=== PATIENT | female | born 1930 | race Caucasian/White ===

== ENCOUNTER 2017-07-20 08:38 | Inpatient (IN) | payer MEDICARE, OTHER ==
[~2017-07-20] VITALS: Ht 162.6 cm; Wt 63.2 kg
[2017-07-20] MEDS ORDERED: ALBU17IN INH (08:48)
[2017-07-20] MEDS ORDERED: CARV3.12 PO (08:48)
[2017-07-20] MEDS ORDERED: ASPI81TA85 PO (08:48)
[2017-07-20] MEDS ORDERED: POTA20TA4 PO (08:48)
[2017-07-20] MEDS ORDERED: IPRASOL4 NEB (08:48)
[2017-07-20] MEDS ORDERED: FURO40TA2 PO (08:48)
[2017-07-20] MEDS ORDERED: ONDA4TAB5 PO (08:48)
[2017-07-20] MEDS ORDERED: ADV250INH INH (08:48)
[2017-07-20] MEDS ORDERED: METOPROLOL TART 50 MG TAB PO ONE (09:45)
[2017-07-20] MEDS: METOPROLOL 5 MG/5 ML VIAL IV SCH ×4 (09:50→10:47)
[2017-07-20 10:05] LABS: BASO % 0.1 % (0.0-1.0); LYMPH # 0.8 10^3/uL (1.5-4.5); LYMPH % 6.9 % (24.0-44.0); MEAN CORPUSCULAR HEMOGLOBIN 29.9 pg (27.0-33.0); MEAN CORPUSCULAR HGB CONC 31.1 g/dl (32.0-36.5); MEAN CORPUSCULAR VOLUME 96.1 fl (80.0-96.0); MONO # 0.9 10^3/uL (0.0-0.8); MONO % 7.2 % (0.0-5.0); NEUTROPHILS # 10.1 10^3/uL (1.8-7.7); NEUTROPHILS % 84.8 % (36.0-66.0); PLATELET COUNT, AUTOMATED 169 10^3/uL (150-450); RED CELL DISTRIBUTION WIDTH 17.1 % (11.5-14.5)
[2017-07-20] MEDS ORDERED: METOPROLOL TART 50 MG TAB As Ordered ONE (10:05)
[2017-07-20 10:06] LABS: ADD MANUAL DIFFER NO; DIFF SLIDE NUMBER 168
[2017-07-20 10:13] LABS: INR 1.39
--- NOTE | 2017-07-20 10:22 | REP ---
Portable chest, single AP view, patient sitting: There are no comparisons. There is mild interstitial coarsening of uncertain significance in the absence of prior studies (chronic versus acute). Cardiac size is enlarged. There is a cardiac valve prosthesis. There are no pleural effusions. There are no focal infiltrates. There is a focal dense lesion in the right humeral neck, nonspecific, metastasis versus enchondroma versus bone infarct. Signed by Kris Gomez MD 07/20/2017 10:13 A
[2017-07-20 11:10] LABS: CALCIUM LEVEL 8.6 MG/DL (8.8-10.2); CREATININE FOR GFR 1.2 MG/DL (0.55-1.02); GLOMERULAR FILTRATION RATE 45.2 (>32); POTASSIUM SERUM 4.8 MEQ/L (3.5-5.1)
[2017-07-20] MEDS ORDERED: FUROSEMIDE 40 MG/4 ML VIAL (J1940) IV ONE (11:45)
[2017-07-20] MEDS ORDERED: DIGOXIN INJ 0.5 MG/2 ML AMP (J1160) IV ONE (11:45)
[2017-07-20] MEDS ORDERED: ONDANSETRON 4MG/2ML VIAL (J2405) IV PRN (13:45)
[2017-07-20] MEDS ORDERED: ACETAMINOPHEN TAB 650MG DOSE (2X325MG) PO PRN (13:45)
[2017-07-20] MEDS ORDERED: IPRATROPIUM 0.02% SOLN 0.5MG/2.5 ML NEB INH PRN (13:45)
--- NOTE | 2017-07-20 13:53 | REP ---
CT Head without contrast HISTORY: Confusion COMPARISON: None An area of decreased attenuation is present in the left occipital and posterior left temporal lobe. There is dilatation of the overlying cortical sulci. This represents an old infarction. A small area of decreased attenuation is present in the inferior right cerebellum. This represents an infarction of indeterminate age. Areas of decreased attenuation are present in the periventricular and subcortical white matter. This represents small-vessel ischemic disease. There is no intraparenchymal hemorrhage, mass or midline shift. The ventricular system and cortical sulci are dilated consistent with mild volume loss. There is no extra cerebral collection. There is no fracture. The visualized sinuses are clear. IMPRESSION: 1. 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 2. Small right cerebellar infarction of indeterminate age. 3. Small vessel ischemic disease. 4. Mild volume loss. Signed by Raffaele Meyers MD 07/20/2017 01:44 P
[2017-07-20 14:10] LABS: RETIC HEMOGLOBIN EQUIVALENT 34.4 pg (24-36); RETICULOCYTE % 4.8 % (0.5-1.5)
[2017-07-20 15:00] VITALS: BP 138/77
--- NOTE | 2017-07-20 15:05 | HPE ---
DATE OF ADMISSION: 07/20/2017 PRIMARY CARE PHYSICIAN: In [place]. MEDICAL CLERICAL ASSISTANT: Dr. Christy in [place]. CHIEF COMPLAINT: Shortness of breath. HISTORY OF PRESENT ILLNESS: The patient is an 87-year-old female who presented to a hospital in [place], [facility] was the name of the facility, on 06/14/2017. At that time, she presented with aphagia and right sided weakness. A CT was completed at that time and did not reveal any hemorrhage. An MRI check later did reveal a hemorrhagic conversion. Etiology at that time was not clear. She was not started on any anticoagulation other than aspirin. She did have residual deficits and was discharged to a rehab facility where she was supposed to stay for 6-8 weeks. However, after 3 weeks, her insurance notified her that she was no medically stable for discharge home and she went to live with her son. The patient's son is a recovered alcoholic who has been sober for 20 or greater years, but fell off the wagon and began drinking heavily shortly after his mother arrived fearing that he was unable to care for her. The patient's daughter, who lives in this area had arranged for an ambulance to pick her up from her drunk brother's house and drive straight directly to her home where she stayed overnight, however the patient became increasingly confused and short of breath, which prompted her to bring her to the emergency room here. The patient's CVA, upon reviewing her cardiologists notes, following her discharge report, there was concern that it was secondary to paroxysmal atrial fibrillation. The franchise development manager had wanted to start the patient on Eliquis, however given that she had hemorrhagic conversion of her CVA, this was not done. The patient was continued on aspirin. The patient does have a history of bioprosthetic aortic valve replacement and subsequent stenosis of this valve, and prior to her CVA had been undergoing evaluation for potential transcatheter aortic valve replacement (TAVR), which she had been resistant to. She had reportedly been told that she needed a pacemaker to be placed by her previous franchise development manager and she declined this as well. In the emergency room at this time, the patient is disoriented to place, time or situation. She is only aware of who she is. She is not aware of who else is in the room. She has no complaints of shortness of breath, chest pain or pressure at this time. PAST MEDICAL HISTORY: Status post aortic valve replacement with acquired aortic stenosis. Chronic kidney disease stage III. Chronic obstructive pulmonary disease (COPD). Hypertension. Paroxysmal atrial fibrillation, discovered July 06. Varicose veins. Right bundle branch block. Essential tremors. Dysphagia. Osteoarthritis (OA). PAST SURGICAL HISTORY: Bioprosthetic aortic valve replacement in 2005 with leak. Hysterectomy in 1981. Cystoscopy 20 years ago with perforated colon. Bilateral cataract surgery. SOCIAL HISTORY: Her daughter Caridad is the power of energy attorney. She is an occasional drinker, former smoker. HOME MEDICATIONS: - Ventolin - DuoNebs - aspirin 81 mg - Coreg 3.125 mg by mouth twice a day - Lasix 40 mg daily - Zofran 4 mg as needed for nausea - potassium chloride 20 mEq daily - Tylenol 500 mg every 6 hours as needed for pain - Advair - atorvastatin 40 mg - senna 8.6 - omeprazole 20 mg FAMILY HISTORY: Noncontributory. REVIEW OF SYSTEMS: Negative other than the history of present illness. OBJECTIVE: VITAL SIGNS: Temperature 98.1, pulse 130 and irregular, respiratory rate 20, blood pressure 109/68, oxygen saturation 94% on 2 liters nasal cannula. GENERAL: She is a frail elderly, female laying with head up in bed. She does not appear to be in any acute distress. She is resting quite comfortably. HEENT: She has prominent venous congestion. Does appear to be some mild elevation of her central venous pressure, although she does have chronic baseline congestion I suspect. She has moist mucous membranes. Pupils equally, round and reactive to light. Tongue is midline. Face is symmetric. She does cooperate with cranial nerve testing but it appears to be grossly intact based on my conversation. She does track across the room. CARDIOVASCULAR EXAM: S1 and S2 irregularly irregular with pansystolic murmur. RESPIRATORY EXAM: Clear. She does not cooperate with deep inspiration. ABDOMINAL EXAM: Obese. She has ecchymosis in the right lower quadrant. EXTREMITIES: She has 1-2+ edema bilaterally. NEUROLOGIC: She does not cooperative with neurologic testing. LABORATORY STUDIES: WBC 12.0, hemoglobin 11.4, hematocrit 36.6, platelet count 169. Chemistry panel: Sodium 138, potassium 4.8, chloride 102, bicarb 30, BUN 43, creatinine 1.2, BNP is 36,412, Troponin is 0.04, TSH within normal limits, INR is 1.39. Microbiology: Urine culture from the Ybarra catheter placed in the emergency room is pending. She had a chest x-ray that does not reveal pleural effusions or focal infiltrates. There is a focal dense lesion in the right humeral neck, nonspecific, metastasis versus an enchondroma versus bone artifact. ASSESSMENT/PLAN: This is an 87-year-old female with atrial fibrillation with rapid ventricular response (RVR) in the setting of recent CVA. PROBLEMS: 1. Atrial fibrillation with rapid ventricular response (RVR). She did receive Lopressor 5 mg IV times three in the emergency room as well as 50 mg by mouth. In addition, she also did receive 0.25 mg of digoxin IV times one. Her rate at this time appears to still be uncontrolled and she dips down into the low 100s at times. I have contacted Dr. Mcginnis of cardiology as a consult to see if he can help in controlling the rate as she does appear to be somewhat hypotensive. She will be admitted to the progressive care unit and depending on her need she may require Cardizem drip and may require transfer to the medical intensive care unit. I will continue her on metoprolol tartrate 25 mg every 6 hours with holding parameters and close monitoring. 2. Recent CVA. She is on atorvastatin and aspirin, which I will continue. Physical therapy, occupational therapy and speech therapy evaluations have been placed. She will be a pureed diet. Given that she is confused it is unclear to me or the daughter as to even how close or different this is from her baseline since her CVA. I will recheck a CT of her head at this time stat to ensure no worsening bleeding. Will also check an MRI of the brain to rule out any new CVA. I have spoken with Dr. Harris of neurology who will see the patient in consultation. Given that she is likely a fall risk, she is not a good candidate for anticoagulation; however, given her recent CVA related to paroxysmal atrial fibrillation, she is certainly at high risk for having a stroke once again. A lengthy conversation was had with the patient's daughter at the bedside who is the power of energy attorney. I did discuss goals of care, code status, DNR, DNI. At this time, she wishes to think about it. However, given that the patient's history of declining medical therapies and surgical interventions in the past, it does not seem as though she would want to have aggressive measures taken. 3. Congestive heart failure (CHF), reportedly diastolic in nature as per her franchise development manager. She appears to be mildly decompensated likely related to her atrial fibrillation with rapid ventricular response (RVR). She received 40 of Lasix in the emergency room and has a Ybarra catheter in place. Given that her pressure is soft, we attempting to rate control her. I will hold off on further diuresis at this time. Keep the head of her bed up. She is on 2 liters of oxygen. We will wean as tolerated and titrate for sats greater than 88. She has a right bundle branch block which is chronic. She is on aspirin and statin as well as a beta-lin. Will trend her Troponin and monitor int he progressive care unit. 4. Leukocytosis. Likely related to stress. However, given that she is confused, we will check a UA, blood cultures, and urine culture as well to rule out any infectious etiology, however this seems less likely at this time. 5. Chronic kidney disease. No clear baseline, however she is reportedly stage III and I suspect that she is not far from her baseline. 6. Hypertension. She is actually hypotensive at this time. 7. Chronic obstructive pulmonary disease (COPD). Will continue her with Xopenex as needed as well as ipratropium standing and as needed. She does not appear to be acutely short of breath at all. 8. Aortic stenosis. The patient has a bioprosthetic aortic valve placed in 2005 and reportedly does have a leak and acquired stenosis. She was under evaluation for TAVR, which she does not appear to be a good candidate for at this time. Will check an echocardiogram on this patient. She will have neuro checks. 9. Deep vein thrombosis (DVT) prophylaxis. The patient will be on Lovenox. DISPOSITION: Patient is admitted to the progressive care unit. Her clinical status is guarded and snf prognosis appears to be poor. I did initiate a goals of care discussion with the patient's daughter, Caridad, who is the power energy attorney and discuss DNR/DNI. She will think about this, but I suspect the patient, given her history, this is most appropriate at least DNR/DNI status and at her very best would require test evaluator placement.
[2017-07-20] MEDS: ASPIRIN 81 MG CHEW TABLET PO SCH (15:14)
[2017-07-20] MEDS: ATORVASTATIN 20 MG TAB PO SCH (15:14)
[2017-07-20] MEDS: IPRATROPIUM 0.02% SOLN 0.5MG/2.5 ML NEB INH SCH ×2 (15:17→19:55)
[2017-07-20 15:29] LABS: PERCENT SATURATION 11.4 % (13.2-45.0)
[2017-07-20 16:03] LABS: MICROSCOPIC INDICATED? YES (NO)
[2017-07-20] MEDS: METOPROLOL TART 25 MG TABLET PO SCH ×2 (17:03→23:43)
[2017-07-20] MEDS ORDERED: SLF 3 ML SYR IV PRN (19:00)
--- NOTE | 2017-07-20 20:14 | CR ---
DATE OF CONSULTATION: 07/20/2017 REFERRING PHYSICIAN: Dr. Dunn INDICATION: Atrial fibrillation, congestive heart failure. Aortic stenosis. HISTORY OF PRESENT ILLNESS: Ms. Atkinson is previously unknown to me. She is a very pleasant 87-year-old female who has complicated medical history. She suffered an ischemic stroke in late May 2017 (06/14/2017) that manifested as aphasia and right-sided weakness. She was admitted to hospital in [place]. Apparently there was a hemorrhagic conversion, but she was eventually discharged to rehab facility and after 3 weeks actually discharged home. She was taken care of by her son, who unfortunately is an alcoholic, and after few days his condition decompensated and he started a drinking binge and called his sister. She arrange for medical transport for the patient to be brought from [place] all the way to [place]. On presentation here, she was very short of breath, confused at times, she had peripheral edema, so she was brought for evaluation in emergency room and eventually admitted. On presentation to the ER she was found to be in atrial fibrillation with rapid ventricular response. There was evidence for congestive heart failure. She was only minimally verbal, but the condition somewhat improved and as we speak she actually can answer some simple questions even though not always appropriately. It is a desire of her daughter and granddaughter (both at the bedside) to provide all maximal possible medical therapy. At my evaluation, the patient denies any chest pain or shortness of breath. She has no subjective palpitations. Unfortunately that is about how much history I was able to obtain. PAST MEDICAL HISTORY: 1. History of aortic valve replacement with bioprosthesis in 2005. Based on records of her soda flaker from [place], Dr. Jeff Christy, she had an echocardiogram in September 2016 which revealed preserved left ventricular systolic function, but severe stenosis of aortic bioprosthesis (mean gradient was 48 mmHg) and there was moderate aortic insufficiency and moderate pulmonary hypertension. She apparently was being evaluated for possibility of TAVR but it is unclear whether she refused the procedure, but in any case, it was never done. 2. History of atrial fibrillation. According to records of her soda flaker it was diagnosed just in June 2017. According to the family there is longstanding history of paroxysmal atrial fibrillation, but we do not have any documented records. 3. There is no significant coronary artery disease. She had cardiac catheterization in April 2015 that revealed mild nonobstructive coronary artery disease. 4. History of congestive heart failure. 5. Arterial hypertension. 6. COPD. SURGICAL HISTORY: Positive for AVR in 2005, hysterectomy and remote colonoscopy complicated by perforation. OUTPATIENT MEDICATIONS: As of 06/1917 Coreg 3.125 twice a day, aspirin 81 a day, Lasix 40 once a day, potassium chloride. 10 mEq once a day, omeprazole 20 mg a day, albuterol as needed and Lipitor 40 mg a day and Aleve as needed. FAMILY HISTORY: Father arterial hypertension and mother as well. It is probably no longer relevant information. 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 She does not smoke and she used to smoke a long time ago. She lives with her son but as of lately was brought to [facility]. Her daughter, Caridad is her power of trust and estates attorney REVIEW OF SYSTEMS: On the review of systems she cannot provide reasonable history, but based on family and records from her soda flaker, there is no history of bleeding problems. There is no prior history of stroke. There is no history of coronary artery disease. There is no history of syncope, even though at one point apparently there was a consideration for pacemaker placement. She denies any abdominal pain and the rest of review of systems as per HPI or otherwise negative. PHYSICAL EXAMINATION: Ms. Atkinson is an elderly female. She does not appear to be in any physical distress. She is alert and oriented x2. She provides simple answers to basic questions but cannot elaborate and certainly some of her answers are not appropriate. The last set of vital signs was blood pressure 125/62, heart rate 115. Saturation was 98% on 2 liters of oxygen by nasal cannula. She is afebrile. Her JVP is about 5 cm above clavicle in 40% degree. Lungs are reasonably clear to auscultation with only occasional end-inspiratory crackles. I do not appreciate any wheezing. Heart exam reveals irregularly irregular rhythm. There is harsh systolic ejection murmur over the aortic valve radiating to both carotid arteries about 4/6 intensity. There is also diastolic murmur which is best heard at left sternal border about 2/6 intensity. I do not appreciate any mitral insufficiency murmur. Abdomen is soft, nontender. No hepatosplenomegaly is appreciated. There is about 2+ edema to the level of knees. Peripheral pulses are palpable. Neurologically she has right-sided weakness and she has some degree of expressive aphasia. She seems to comprehend well. There is some element of confusion as well. LABORATORY DATA: Basic metabolic panel potassium 4.8, BUN 43, creatinine 1.0, glucose 126, iron 34, TIBC 297. Saturation 11%. CK 39, troponin 0.04 x to her and terminal probe BNP 36,000. TSH is 3.4. CBC reveals WBC count 12, hemoglobin 11.4, hematocrit 36.6 and platelet count 169,000, INR is 1.4. Urinalysis is 2+ protein, 2+ blood and 2+ leukocyte esterase. IMAGING: Head CT revealed evidence for old left occipital lobes infarction. There is also some evidence for volume loss and small-vessel ischemic disease. Chest x-ray is consistent with borderline cardiomegaly, evidence for bioprosthetic aortic valve and some degree of vascular redistribution, not wilfred edema. ECG reveals evidence of atrial fibrillation with rapid ventricular response. ASSESSMENT/PLAN: Ms. Atkinson is an 87-year-old female who has probably recent onset atrial fibrillation and suffered ischemic stroke in May 2017 with hemorrhagic transformation. She now presents with atrial fibrillation with RVR and exacerbated congestive heart failure setting of severe bioprosthetic aortic valve stenosis with concomitant aortic insufficiency. As far as the cardiac issues are concerned, the atrial fibrillation I agree with current management with providing beta-lin with holding for low blood pressure and heart rate and also digoxin. I am hoping that we will not ultimately need digoxin any longer. As far as the munoz question of anticoagulation is concerned, I am reluctant to provide full anticoagulation due to recent hemorrhagically converted ischemic stroke. I spoke with Dr. Harris and at this point he agrees with my plan, but he believes that provided there will be some clinical stability, she will eventually be able to be started on anticoagulation. My choice would be reduced dose of Eliquis 2.5 mg twice a day to start with. As far as congestive heart failure is concerned, she certainly is acutely exacerbated and volume overloaded. We will provide gentle diuresis. Unfortunately in setting of AFib with RVR and severe aortic stenosis it may not be feasible to get her into got over into compensated state. We will have to take it a day at a time. Ultimately, her candidacy for potential TAVR will principally depend on degree of recovery from her neurologic insult. At this point I am rather skeptical about feasibility of this approach. I expressed my opinion to the family. I spoke with Dr. Harris. I will follow the patient with you. SARAH
[2017-07-20] MEDS: SLF 3 ML SYR IV SCH (22:23)
[2017-07-20] MEDS: ENOXAPARIN 40 MG/0.4 ML SYRINGE (J1650) SC SCH (22:23)
[2017-07-20 23:20] VITALS: BP 138/82
[2017-07-21 00:33] VITALS: BP 133/65
[2017-07-21] MEDS: FUROSEMIDE 40 MG/4 ML VIAL (J1940) IV SCH ×2 (00:55→11:40)
[2017-07-21] MEDS: diltiaZEM 125 MG in NS 100 ML IV SCH ×2 (00:55→16:50)
[2017-07-21 03:40] VITALS: BP 118/59
[2017-07-21] MEDS: SLF 3 ML SYR IV SCH ×3 (06:00→22:00)
[2017-07-21] MEDS: METOPROLOL TART 25 MG TABLET PO SCH ×3 (06:00→17:16)
[2017-07-21 06:20] LABS: MEAN CORPUSCULAR HGB CONC 31.5 g/dl (32.0-36.5); MEAN CORPUSCULAR VOLUME 95.5 fl (80.0-96.0); RED CELL DISTRIBUTION WIDTH 16.6 % (11.5-14.5); WHITE BLOOD COUNT 10.9 10^3/uL (4.0-10.0)
[2017-07-21 06:46] LABS: CALCIUM LEVEL 8.1 MG/DL (8.8-10.2); CREATININE FOR GFR 0.98 MG/DL (0.55-1.02); GLOMERULAR FILTRATION RATE 57.2 (>32); POTASSIUM SERUM 4.1 MEQ/L (3.5-5.1)
[2017-07-21] MEDS: IPRATROPIUM 0.02% SOLN 0.5MG/2.5 ML NEB INH SCH ×4 (07:34→20:26)
--- NOTE | 2017-07-21 07:47 | CR ---
DATE OF CONSULTATION: 07/20/2017 REFERRING PHYSICIAN: Dr. Sergio Dunn REASON FOR CONSULTATION: Patient with history of stroke and atrial fibrillation. HISTORY OF PRESENT ILLNESS: Poonam Atkinson is an 87-year-old woman who was admitted at a hospital in [place] on 06/14/2017 when she had right-sided weakness and trouble speaking. She was found to have left occipital paramedian acute ischemic stroke on CT scan of head. Later, MRI scan of brain showed hemorrhagic conversion. I do not have reports to know the size of hemorrhage within the stroke. She was also found to have atrial fibrillation. They planned to start Eliquis at that time, but could not do so due to hemorrhagic conversion of her ischemic stroke. The patient went to rehabilitation for 3 weeks. Later, she was discharged home and was living with her son who had issues with alcoholism. Due to her son's alcoholism, she came to live with her daughter yesterday. Because of her shortness of breath, she was brought to [facility] and was found to have atrial fibrillation with rapid ventricular response. The patient also has history of extensive valvular heart disease. She had been taking aspirin 81 mg daily prior to her stroke. According to the patient's daughter and granddaughter, the patient has been very active and independent all her life until she had her stroke. The patient currently appears confused. She has had issues with balance lately. They felt that her balance worsened since she came home. The patient denies any headaches or neck pain. She has history of off-and-on back pain in the past. PAST MEDICAL HISTORY: 1. History of bioprosthetic aortic valve replacement with aortic stenosis. 2. Chronic kidney disease stage III. 3. Chronic obstructive pulmonary disease (COPD). 4. Hypertension. 5. Atrial fibrillation which was discovered within the last couple of months. 6. Varicose veins. 7. Essential tremor. 8. Dysphagia. 9. Osteoarthritis. 10. Right bundle branch block. 11. Hysterectomy. 12. Cystoscopy. 13. Bilateral cataract surgery. SOCIAL HISTORY: She is currently living with her daughter. She moved from [place] yesterday. HOME MEDICATIONS: - aspirin 81 mg by mouth daily - Coreg 3.125 mg by mouth twice a day - Lasix 40 mg by mouth daily - Lipitor 40 mg by mouth daily - Prilosec 20 mg by mouth daily FAMILY HISTORY: Noncontributory. REVIEW OF SYSTEMS: All systems were reviewed and were found to be noncontributory except as mentioned in history present illness. PHYSICAL EXAMINATION: Temperature 98.1, pulse 130 and irregular, respiratory rate 20, blood pressure 109/68. Heart: Irregularly irregular. Lungs: Clear to auscultation. Abdomen: Soft, nontender, nondistended. Neurological Examination: The patient is awake, mildly drowsy and oriented to self, city and state. She is unable to tell me the name of the hospital, month, year, or name of president. Her recall is 0/3 at 5 minutes. She is unable to do serial sevens. Her speech is clear. Extraocular muscles are intact. No facial weakness. Tongue and uvula are midline. 5/5 strength in all four extremities. Deep tendon reflexes are 1+ throughout. Normal sensation to light touch, pinprick, vibration, etc. She has decreased right-sided visual delgado. Gait could not be tested. There is no dysmetria. DIAGNOSTIC STUDIES: CT scan of her head showed left occipital paramedian and right cerebellar ischemic strokes. ASSESSMENT: 1. Left occipital and right cerebellar ischemic strokes. 2. History of left occipital stroke in May 2017 with hemorrhagic conversion and hemorrhage that has since resolved. 3. Atrial fibrillation. 4. Unsteady gait. 5. Delirium. 6. Possible urinary tract infection, although some of the studies are still pending. PLAN: 1. She does need to be on anticoagulation, but her fall risk increases risk of traumatic abdominal and intracranial bleeding. We should continue aspirin 81 mg by mouth daily for now until her mentation and hopefully her walking ability improves and then consider using Xarelto or Eliquis. 2. If she is found to have urinary tract infection, treating that with antibiotics may improve her delirium. We can also use Risperdal 0.25 mg by mouth twice a day to improve her encephalopathy and delirium. 3. Cardiology consultation is also recommended due to extensive history of valvular heart disease and now atrial fibrillation. This dictation thank you very much
[2017-07-21 08:00] VITALS: BP 112/54
--- NOTE | 2017-07-21 08:02 | IPN ---
DATE: 07/21/2017 Mrs. Atkinson did not have a particularly good night. She apparently was restless, she could not tolerate the MRI and she did not take her medications orally and consequently she was started on IV Cardizem. This morning, she is somewhat somnolent, but easily arousable and appropriately answers questions. She would squeeze my hands and smile on command. Denies any chest pain or shortness of breath. Blood pressure 118/59. Heart rate has been from 70s to low 100s. She is afebrile. Saturation 97% on 2 liters of oxygen. Fluid balance yesterday documented -300. Weight is 62.4. Her jugular venous pulse (JVP) is still elevated, but less so than yesterday evening. Lungs sound pretty clear to auscultation. I do not appreciate any wheezing or crackles. Heart exam reveals an irregularly irregular rhythm. There is a harsh systolic ejection murmur over the aortic valve radiating to her carotid arteries and also there is a diastolic murmur consistent with aortic insufficiency. Both are very loud. Abdomen is soft, no tenderness. The peripheral edema has decreased, I would qualify it as about 1+ today. Neurologic condition does not seem to be appreciably changed since yesterday. Laboratorywise, hemoglobin 10.6, hematocrit 33.7 and platelet count 149,000. Her basic metabolic panel remains normal. BNP was for some reason redrawn and is essentially unchanged since yesterday and extremely high. ASSESSMENT/PLAN: Mrs. 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 She was being worked up for transcatheter aortic valve replacement (TAVR), but unfortunately suffered a stroke in late May. 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 She seems to be left with significant neurologic deficit. She was later on found to be in atrial fibrillation and came to our facility with rapid ventricular response and concomitant congestive heart failure. I would prefer to use beta blockers for rate control, but unfortunately because she has not been swallowing she was started on IV Cardizem. It seems to have been successful and the rate is reasonably well-controlled at this point. As far as the congestive heart failure condition is concerned, she really has not received very much diuretics as yet and I do expect that it will improve with better rate control, even though due to underlying severe aortic stenosis it might be very challenging to accomplish good control as such. From my perspective, I believe that she can be started on anticoagulation. I would prefer to use Eliquis just 2.5 mg twice a day initially because of her age and small size. I will leave the recommendations to neurology, but when reasonably safe from their perspective, I would proceed. As far as the aortic valve is concerned, I do not believe that she is a candidate for TAVR until we have a better idea what is her neurologic condition going to be as a consequence of the events that she suffered. As far as congestive heart failure is concerned, I would continue current management. An echocardiogram is pending, but we have one from about 10 months ago from [place] that revealed preserved LV systolic function and severe aortic stenosis. It is consistent with the exam and consequently I am afraid that to accomplish really good control will be challenging. I think that her overall prognosis remains guarded at best and I am especially concerned about her neurologic status. Even though she is fully alert and oriented, her condition is certainly not favorable. SARAH
[2017-07-21] MEDS: ATORVASTATIN 20 MG TAB PO SCH (09:00)
[2017-07-21] MEDS: PANTOPRAZOLE 40MG TAB (PROTONIX) PO SCH (09:00)
[2017-07-21] MEDS: ASPIRIN 81 MG CHEW TABLET PO SCH (09:00)
[2017-07-21] MEDS ORDERED: DIGOXIN 0.125 MG TAB PO SCH (09:00)
[2017-07-21 12:00] VITALS: BP 115/62
[2017-07-21 16:00] VITALS: BP 120/71
--- NOTE | 2017-07-21 16:07 | IPNPDOC ---
Subjective Date Seen The patient was seen on 07/21/17. Subjective Chief Complaint/HPI Patient seen and examined at the bedside. Does not offer much history, as she does appear more drowsy this morning. She nods that she is not in any pain, and does not offer any acute complaints. House staff notes that the patient was restless throughout the night. Objective Physical Examination General Exam: Positive: Cooperative, No Acute Distress ENT Exam: Positive: Atraumatic, Mucous membr. moist/pink Chest Exam: Positive: Diminished Heart Exam: Positive: Irregular Rhythm Telemetry: Positive: Atrial fibrillation Abdomen Exam: Positive: Soft, Negative: Tenderness Extremity Exam: Positive: Swelling (1+ edema in L/E bilaterally), Negative: Tenderness Assessment /Plan Plan/VTE VTE Prophylaxis Ordered?: Yes Plan/Urinary Catheter Reason for insertion/continuin: Critical Pt monitoring Plan Atrial Fibrillation with RVR Patient's HR better controlled on Cardizem gtt this AM HR remains in the 70-80s range while on 5mg/hr Patient not on AC due to recent history of Ischemic CVA with Hemorrhagic conversion--will f/u with Neurology regarding recommendations for AC Cardiology on board Decompensated CHF likely 2/2 Above Currently on Lasix 40mg IV BID as per Cardiology 2D ECHO pending here Volume status appears to have improved compared to last night We will cont to monitor her volume status Hx of Bioprosthetic Aortic Valve Replacement with Subsequent Severe Aortic Stenosis of Prosthesis Patient was being considering for TAVR in the past, however she did suffer a CVA recently, and there was also a question of whether she declined this intervention Cardiology on board Hx of Ischemic CVA with Hemorrhagic Conversion CT of the Head noted here Patient was unable to obtain MRI 2/2 clinical condition Cont ASA, Statin Neurology on board CKD Stage IIIB Serum Cr appears to be at baseline COPD, stable Cont Current Regimen DVT Prophylaxis Lovenox SC 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 She wishes to talk with her family before coming to a decision. Dispo-pending clinical improvement VS, I&O, 24H, Fishbone Vital Signs/I&O Vital Signs Date Time Temp Pulse Resp B/P (MAP) Pulse Ox O2 Delivery O2 Flow Rate FiO2 07/21/17 12:00 Nasal Cannula 2.0 07/21/17 12:00 98.0 69 18 115/62 (79) 98 I&O- Last 24 Hours up to 6 AM 07/22/17 06:00 Intake Total 630 ml Output Total 550 ml Balance 80 ml Laboratory Data 24H LABS Laboratory Tests 2 07/20/17 19:20: Troponin I 0.06# 07/21/17 01:40: Troponin I 0.07 07/21/17 06:02: Troponin I 0.07, Anion Gap 7L, Glomerular Filtration Rate 57.2, Estimated Mean Plasma Glucose 114H, Hemoglobin A1c 5.6, Calcium Level 8.1L, NL-Psz-N-Type Natriuretic Peptide 36407K, Triglycerides Level 89, LDL Cholesterol 78.2, Total Cholesterol 125, Non-HDL Cholesterol (LDL + VLDL) 96, Total HDL Cholesterol 29L , Cholesterol/HDL Ratio 4.310 07/21/17 13:19: Troponin I 0.06 CBC/BMP Laboratory Tests 07/21/17 06:02 Red Blood Count 3.53 L, Mean Corpuscular Volume 95.5, Mean Corpuscular Hemoglobin 30.0, Mean Corpuscular Hemoglobin Concent 31.5 L, Red Cell Distribution Width 16.6 H Microbiology Microbiology 07/20/17 Blood Culture - Preliminary, Resulted No growth after 24 hours . All specim... 07/20/17 Blood Culture - Preliminary, Resulted No growth after 24 hours . All specim... 07/20/17 Urine Culture - Preliminary, Resulted Staphylococcus Aureus REGULO LEIVA MD Jul 21, 2017 16:07
[2017-07-21 20:00] VITALS: BP 115/56
--- NOTE | 2017-07-21 20:57 | ECGEPIP ---
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
--- NOTE | 2017-07-21 23:09 | ECHO ---
DATE OF PROCEDURE: 07/21/2017 REFERRING PHYSICIAN: Sergio Dunn MD PATIENT LOCATION: Room 3217 REASON FOR ECHOCARDIOGRAM: Shortness of breath. 2D MEASUREMENTS: IVS: 1.3 cm LV: 4.7 cm LVPW: 1.2 cm LA: 4.1 cm Aorta: 3.5 cm IVC: 2.8 cm DOPPLER MEASUREMENTS: Peak velocity across the aortic valve: 2.8 m/s Peak velocity across the LVOT: 0.65 m/s Mitral E: 1.4, Mitral A: 0.4, with a ratio of 3.4 Maximum tricuspid valve velocity: 3.3 m/s 2D COMMENTS: 1. Normal left ventricular size, wall thickness and normal global left ventricular systolic function. The estimated left ventricular systolic ejection fraction is 60 to 65%. 2. Mildly enlarged left atrium. The right atrium also appeared to be enlarged. Normal right ventricle. 3. The atrial septum appeared to be normal without evidence of defect or shunt. 4. Normal aortic root. 5. No pericardial effusion seen. 6. Bioprosthetic valve noted in the aortic valve position, leaflet excursion appeared to be not significantly restricted. Mildly calcified mitral annulus with normal anterior mitral valve leaflet motion. Normal tricuspid valve and pulmonic valve. The proximal pulmonary artery branches were not well visualized. 7. The inferior vena cava was dilated, central venous pressure might be elevated. DOPPLER: It detects probably moderate eccentric aortic regurgitation, moderate mitral regurgitation, and moderately severe tricuspid regurgitation. The calculated pulmonary artery systolic pressure varied between 40 to 50 mmHg. IMPRESSION: 1. Normal global left ventricular systolic function with mild concentric left ventricular hypertrophy. 2. Bioprosthetic aortic valve noted in the aortic valve position with moderate regurgitation and probably mild stenosis. 3. Mitral annulus calcification with moderate mitral regurgitation and enlarged left atrium. 4. Dilated right atrium with moderately severe tricuspid regurgitation and moderate pulmonary hypertension. 5. The inferior vena cava was dilated, central venous pressure is most likely elevated. MTDD
[2017-07-21] MEDS: ENOXAPARIN 40 MG/0.4 ML SYRINGE (J1650) SC SCH (23:28)
[2017-07-22] VITALS (10 sets, daily range): BP systolic 94–157; BP diastolic 50–100
[2017-07-22] MEDS: FUROSEMIDE 40 MG/4 ML VIAL (J1940) IV SCH ×3 (00:30→23:08)
[2017-07-22 05:22] LABS: MEAN CORPUSCULAR HEMOGLOBIN 30.3 pg (27.0-33.0); MEAN CORPUSCULAR HGB CONC 31.9 g/dl (32.0-36.5); PLATELET COUNT, AUTOMATED 148 10^3/uL (150-450); RED CELL DISTRIBUTION WIDTH 16.7 % (11.5-14.5); WHITE BLOOD COUNT 15.7 10^3/uL (4.0-10.0)
[2017-07-22 05:46] LABS: ANION GAP 9 MEQ/L (8-16); BLOOD UREA NITROGEN 36 MG/DL (7-18); CALCIUM LEVEL 7.7 MG/DL (8.8-10.2); CARBON DIOXIDE LEVEL 34 MEQ/L (21-32); CHLORIDE LEVEL 100 MEQ/L (98-107); CREATININE FOR GFR 0.85 MG/DL (0.55-1.02); GLOMERULAR FILTRATION RATE > 60.0 (>32); GLUCOSE, FASTING 105 MG/DL (83-110); POTASSIUM SERUM 3.1 MEQ/L (3.5-5.1); SODIUM LEVEL 143 MEQ/L (136-145)
[2017-07-22] MEDS: SLF 3 ML SYR IV SCH ×3 (06:00→21:44)
[2017-07-22] MEDS: METOPROLOL TART 25 MG TABLET PO SCH ×2 (06:00)
[2017-07-22] MEDS: IPRATROPIUM 0.02% SOLN 0.5MG/2.5 ML NEB INH SCH ×4 (07:47→20:14)
[2017-07-22] MEDS: LEVALBUTEROL 1.25 MG/0.5 ML CONCENTRATE NEB INH PRN ×3 (07:47→15:32)
--- NOTE | 2017-07-22 08:49 | IPN ---
DATE: 07/22/2017 Mrs. Atkinson looks a lot better this morning. When I entered the room she was actually finishing her breakfast. She seems to be oriented even though when you start asking her specific questions it turns out that it is not completely so. She certainly does not know where exactly she is and she cannot tell you the date, but she answers most questions appropriately. She does complain about mild dyspnea, but denies any chest pain, headache, nausea or vomiting. She still has not been taking her medications for the most part. Blood pressure 128/56, heart rate has been in 60s. She is afebrile. Saturation 94% on 2 liters of oxygen. Her fluid balance yesterday was negative 1200. Weight is documented at 61.4. She is alert. Her JVP though is still high. Lungs though are surprisingly clear to auscultation. Heart exam is unchanged. There is a harsh systolic murmur over the aortic valve radiating to her carotid arteries. There is also very prominent diastolic murmur. Abdomen is soft, nontender. There is still peripheral edema even though it has improved about 1+. She has elastic stockings on, which helps as well I suspect. Laboratory mascorro, CBC hemoglobin 10.9, hematocrit 34, platelet count 148,000. Basic metabolic panel potassium 3.1, BUN is 36, creatinine 0.8 and glucose 105. BNP is almost 31,000, which is july high, but still better than yesterday. ASSESSMENT/PLAN: Mrs. Atkinson is an 87-year-old female who came after recent stroke. She has atrial fibrillation that is now reasonably well-controlled with infusion of Cardizem 5 mg per hour. She initially had some pauses on higher dose, but she has not had any on current dose and consequently once she starts taking reliable p.o. I believe that we can switch her even to Cardizem orally. I would start with 30 mg q.8 h with titration based on response and I would discontinue her metoprolol. At this point, I also would advocate to start her on anticoagulation, probably Eliquis 2.5 b.i.d., please clear this with neurology. As far as congestive heart failure is concerned, she has been diuresing well and her condition improves, I am going to add spironolactone to her regimen for some potassium-sparing effect. As far as the condition of her aortic valve is concerned, she had an echocardiogram yesterday. The stenosis certainly did not appear severe and she had apparently moderate insufficiency. That takes off some pressure of urgency to perform any intervention as far as the valve is concerned. Her condition certainly remains guarded, but is improved since admission.
[2017-07-22 09:01] LABS: REASON FOR REVIEW COMPREHENSIVE REVIEW
[2017-07-22] MEDS: SPIRONOLACTONE 12.5MG PER 1/2 TABLET PO SCH (09:27)
[2017-07-22] MEDS: ASPIRIN 81 MG CHEW TABLET PO SCH (09:28)
[2017-07-22] MEDS: PANTOPRAZOLE 40MG TAB (PROTONIX) PO SCH (09:29)
[2017-07-22] MEDS: ATORVASTATIN 20 MG TAB PO SCH (09:30)
[2017-07-22] MEDS: KCL 10MEQ IN 100ML SWI (KRUN) 10 MEQ in APPROPRIATE DILUENT 1 EA IV SCH ×8 (09:34→13:12)
[2017-07-22] MEDS: APIXABAN 2.5 MG TAB (ELIQUIS) PO SCH ×2 (11:54→21:44)
--- NOTE | 2017-07-22 12:29 | IPNPDOC ---
Subjective Date Seen The patient was seen on 07/22/17. Subjective Chief Complaint/HPI Patient seen and examined at the bedside. Appears more awake, alert. States that she still has some shortness of breath, but notes that it is improving. Objective Physical Examination General Exam: Positive: Alert, Cooperative, No Acute Distress ENT Exam: Positive: Atraumatic, Mucous membr. moist/pink Neck Exam: Positive: JVD Chest Exam: Positive: Diminished Heart Exam: Positive: Rate Normal, Irregular Rhythm Telemetry: Positive: Atrial fibrillation Abdomen Exam: Positive: Soft, Negative: Tenderness Extremity Exam: Positive: Swelling (1+ edema in L/E bilaterally), Negative: Tenderness Assessment /Plan Plan/VTE VTE Prophylaxis Ordered?: Yes Plan/Urinary Catheter Reason for insertion/continuin: Critical Pt monitoring Plan Atrial Fibrillation with RVR, controlled The patient's HR has been better controlled since starting the Cardizem gtt--- the patient is tolerating a diet this morning, so we will transition her to PO Cardizem 30mg q8h I did discuss Anticoagulation with Dr. Harris of Neurology, and he agrees with Cardiology to start the patient on Eliquis 2.5mg BID. I did extensively discuss the risks, benefits, and alternative therapies associated with restarting the AC with the patient's daughter Caridad/ELIOT at the bedside this AM. She has verbalized understanding of the same. Decompensated CHF likely 2/2 Above Currently on Lasix 40mg IV BID as per Cardiology, Aldactone also added 2D ECHO results noted--the patient's aortic stenosis appears mild compared to her previous history Volume status appears to have improved compared to admission We will cont to monitor her volume status Hx of Bioprosthetic Aortic Valve Replacement with Subsequent Severe Aortic Stenosis of Prosthesis Repeat 2D ECHO here reveals mild aortic stenosis Cardiology on board Hx of Ischemic CVA with Hemorrhagic Conversion CT of the Head noted here Patient was unable to obtain MRI 2/2 clinical condition Cont ASA, Statin Patient started on Eliquis Neurology on board CKD Stage IIIB Serum Cr appears to be at baseline COPD, stable Cont Current Regimen DVT Prophylaxis On 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 VS, I&O, 24H, Fishbone Vital Signs/I&O Vital Signs Date Time Temp Pulse Resp B/P (MAP) Pulse Ox O2 Delivery O2 Flow Rate FiO2 07/22/17 11:52 98.3 87 18 124/100 (108) 97 Nasal Cannula 2.0 I&O- Last 24 Hours up to 6 AM 07/23/17 06:00 Intake Total 530 ml Output Total 525 ml Balance 5 ml Laboratory Data 24H LABS Laboratory Tests 2 07/21/17 13:19: Troponin I 0.06 07/22/17 05:11: Differential Slide Review Report, Differential Pathologist's Review COMPREHENSIVE REVIEW, Peripheral Blood Smear Path Consult PERIPHERAL SMEAR, Anion Gap 9, Glomerular Filtration Rate > 60.0, Blood Urea Nitrogen 36H, Creatinine 0.85, Sodium Level 143, Potassium Level 3.1#L, Chloride Level 100, Carbon Dioxide Level 34H, Calcium Level 7.7L, AN-Rjz-Y-Type Natriuretic Peptide 88727L CBC/BMP Laboratory Tests 07/22/17 05:11 Red Blood Count 3.60 L, Mean Corpuscular Volume 95.0, Mean Corpuscular Hemoglobin 30.3, Mean Corpuscular Hemoglobin Concent 31.9 L, Red Cell Distribution Width 16.7 H, Calcium Level 7.7 L Microbiology Microbiology 07/20/17 Blood Culture - Preliminary, Resulted No growth after 24 hours . All specim... 07/20/17 Blood Culture - Preliminary, Resulted No growth after 24 hours . All specim... 07/20/17 Urine Culture - Final, Complete Staph.aureus Methicillin Resis REGULO LEIVA MD Jul 22, 2017 12:29
[2017-07-22] MEDS ORDERED: METOPROLOL 5 MG/5 ML VIAL IV STA (18:24)
[2017-07-22] MEDS: VANCOMYCIN HCL 1,000 MG, VIAL MATE ADAPTER 1 EACH in D5W 250 ML IV SCH (19:56)
[2017-07-22] MEDS ORDERED: VANCOMYCIN HCL 500 MG in D5W MINI-BAG PLUS 100 ML IV ONE (20:00)
[2017-07-22] MEDS ORDERED: diltiaZEM 125 MG in NS 100 ML IV SCH (21:00)
--- NOTE | 2017-07-22 21:26 | REP ---
PORTABLE CHEST: AP portable view of the chest is performed. COMPARISON: 07/20/2017. There is cardiomegaly. There appears to be mild vascular congestion. There are increased interstitial markings in the lower lobes , particularly on the right, which appear to have increased since prior study suggesting increasing bibasilar interstitial infiltrates or edema. Heart is enlarged. There is calcified tortuous aorta. IMPRESSION: Cardiomegaly. There are increased interstitial markings in the lung bases compared to the prior study, particularly on the right, representing increasing interstitial infiltrates versus edema. Signed by Kris Blunt MD 07/23/2017 02:45 P
[2017-07-22] MEDS ORDERED: METOPROLOL TART 25 MG TABLET PO ONE ×2 (21:45→22:45)
--- NOTE | 2017-07-22 21:59 | PHACANCOPD ---
PHARMACY VANCOMYCIN DOSING Pt Demographics Demographics Patient Age:87 , Weight:61.400 , Gender: female Adjusted Body Weight Date: 07/22/17, Adjusted Body Weight: Kg Events Past 24 Hours Events Past 24 Hours: YES: Fever, Elevation in WBC, NO: Dialysis, Diuretic Therapy, Change in CrCl, Pending Diagnostics, Pending Procedures, Other Vancomycin Vancomycin Target Ranges: 15-20 mcg/ml Vancomycin Load Y/N: Yes Load Dose Date Time Vancomycin Load Dose: 1500MG Date: 07/22/17 Time: 1700 Vancomycin Dose Date: 07/22/17. Current Vancomycin Dose: [1G Q24H] Intermittent Dosing?: No Labs Labs Vital Signs Label Value Date Time Patient Temperature 98.8 degrees F 07/22/17 1552 Temperature Source Temporal 07/22/17 155 Patient Temperature 100.8 degrees F 07/22/171814 Temperature Source Temporal 07/22/171814 Item Value Date Time White Blood Count 12.0 10^3/uL H 07/20/17 0956 White Blood Count 10.9 10^3/uL H 07/21/17 0602 White Blood Count 15.7 10^3/uL H 07/22/17 0511 Creatinine 0.98 MG/DL 07/21/17 0602 Creatinine 0.85 MG/DL 07/22/17 0511 Micro Microbiology 07/22/17 Blood Culture, Received Pending 07/22/17 Blood Culture, Received Pending 07/20/17 Blood Culture - Preliminary, Resulted No Growth after 48 hours. All Specime... 07/20/17 Blood Culture - Preliminary, Resulted No Growth after 48 hours. All Specime... 07/20/17 Urine Culture - Final, Complete Staph.aureus Methicillin Resis Creatinine Clearance Date:07/22/17. Creatinine Clearance: . Assessment and Plan Maintaining Current Dose?: Yes Reason for dose change: No Dose Change Pharmacist Note Pharmacist Note Date: 07/22/17. Pharmacist note: Pt. is a 87 year old female who was brought to the ED for increased confusion and SOB on 07/20/17. Urine screen tested positive for MRSA at that time. Pt. is now displaying a fever and has an increase in WBC. Pt. has never been on vancomycin at our facility. I gave patient a loading dose of vancomycin 1500mg and will follow with 1g IV Q24H. We will continue to monitor and adjust dose as needed. KAREN ESQUEDA PHARMACY Jul 22, 2017 21:59
[2017-07-22] MEDS: MEROPENEM INJ 500 MG in D5W MINI-BAG PLUS 100 ML IV SCH (22:58)
[2017-07-23] VITALS (8 sets, daily range): BP systolic 92–116; BP diastolic 46–68
[2017-07-23] MEDS: diltiaZEM 125 MG in NS 100 ML IV SCH ×6 (00:15→22:11)
[2017-07-23] MEDS: MEROPENEM INJ 500 MG in D5W MINI-BAG PLUS 100 ML IV SCH ×3 (05:31→22:09)
[2017-07-23] MEDS: SLF 3 ML SYR IV SCH ×3 (05:31→22:00)
[2017-07-23 05:54] LABS: MEAN CORPUSCULAR HEMOGLOBIN 29.7 pg (27.0-33.0); MEAN CORPUSCULAR VOLUME 95.8 fl (80.0-96.0); RED CELL DISTRIBUTION WIDTH 16.7 % (11.5-14.5)
[2017-07-23 05:58] LABS: WHITE BLOOD COUNT 35.3 10^3/uL (4.0-10.0)
[2017-07-23 06:04] LABS: CALCIUM LEVEL 7.8 MG/DL (8.8-10.2); CREATININE FOR GFR 1.17 MG/DL (0.55-1.02); GLOMERULAR FILTRATION RATE 46.6 (>32)
[2017-07-23] MEDS: SPIRONOLACTONE 12.5MG PER 1/2 TABLET PO SCH (08:20)
--- NOTE | 2017-07-23 08:48 | IPN ---
DATE: 07/23/2017 Mrs. Atkinson had a rough night. She was doing reasonably well yesterday until in the evening hours when she developed fever and her heart rate became tachycardiac. She became restless and agitated. This has lasted virtually all night. She received additional doses of rate controlling medications with reasonable success. This morning, she is alert, but moaning and groaning. She will answer occasional questions appropriately, but for the most part would be disoriented. Blood pressure last documented was 92/46. Heart rate has been around 90-100. Saturation is 93% on 3 liters of oxygen by nasal cannula. Fluid balance negative 1400. Weight has not been documented this morning. Her jugular venous pulse (JVP) is still high. Lungs reveal bilateral end inspiratory crackles mostly over the bases, left worse than right. Heart exam is unchanged with irregularly irregular rhythm. There is a harsh systolic murmur radiating to her carotid arteries and also a very prominent diastolic murmur. Abdomen is soft and nontender. There is still peripheral edema, even though it is improved. Laboratory-mascorro, her WBC count is 35,000 with hemoglobin 11.3, hematocrit 36 and platelets 127,000. Basic metabolic panel reveals potassium 4.0, BUN 34, creatinine 1.2 and glucose 167. NT-Pro-BNP is 129,000. Urine culture has been growing Staph aureus methicillin resistant from July 20. Blood cultures have been negative times two. Another set of blood cultures were drawn last night and so far have been negative as well. She has received vancomycin on top of her meropenem. ASSESSMENT/PLAN: Mrs. Atkinson is an unfortunate, 87-year-old female who has a multitude of medical problems. First of all, she suffered a stroke in May 2017 and subsequently was found to be in atrial fibrillation. We started her on apixaban yesterday. I will leave the decision making in this regard to neurology. From my perspective, she clearly should be anticoagulated. It is believed that the benefit of the anticoagulation outweighs the risk in the current setting. As far as the rate control of atrial fibrillation is concerned, it was good yesterday, but then deteriorated in the setting of fever, chills and agitation. It looks better again today. She previously had some pauses and so it is likely that she has at least a mild form of sick sinus syndrome, but at this point it has not been an issue. I will continue the same management. I would be inclined to use only intravenous and short acting medications principally until her condition stabilizes. The second issue is that of congestive heart failure. She still is clearly volume overloaded. I am concerned that the fever and elevated white cell count certainly indicate underlying infection. I am not completely clear where the infection is. The chest x-ray was interpreted as possibly representing bilateral lower lobe pneumonia, but it does not look convincing to me. In any case, she has a wide spectrum coverage, but this will mildly complicate the evaluation of fluid status. At this point though I still think that she is overall overloaded rather than intravascularly dry and I would continue diuretics. She will need to be reevaluated on a daily basis and possibly even more frequently. Finally, the delirium that she is exhibiting is certainly increasing her morbidity and mortality risk. I suspect that this is a consequence of her stroke together with infection. Her condition certainly remains guarded at best. Dr. Aponte will cover the patient for the weekend.
[2017-07-23] MEDS: LEVALBUTEROL 1.25 MG/0.5 ML CONCENTRATE NEB INH PRN ×3 (09:06→15:24)
[2017-07-23] MEDS: IPRATROPIUM 0.02% SOLN 0.5MG/2.5 ML NEB INH SCH ×4 (09:07→20:17)
[2017-07-23] MEDS: ATORVASTATIN 20 MG TAB PO SCH (10:16)
[2017-07-23] MEDS: PANTOPRAZOLE 40MG TAB (PROTONIX) PO SCH (10:16)
[2017-07-23] MEDS: APIXABAN 2.5 MG TAB (ELIQUIS) PO SCH ×3 (10:16→22:13)
[2017-07-23] MEDS: FUROSEMIDE 40 MG/4 ML VIAL (J1940) IV SCH (12:00)
[2017-07-23] MEDS ORDERED: NS 1,000 ML IV SCH (13:00)
--- NOTE | 2017-07-23 13:43 | IPNPDOC ---
Subjective Date Seen The patient was seen on 07/23/17. Subjective Chief Complaint/HPI Patient seen and examined at the bedside. States that she feels tired, but denies any acute complaints of pain. She is awake, and is able to answer some questions properly such as her current location. Objective Physical Examination General Exam: Positive: No Acute Distress ENT Exam: Positive: Atraumatic, Negative: Mucous membr. moist/pink (dry mucous membranes) Neck Exam: Positive: JVD Chest Exam: Positive: Diminished Heart Exam: Positive: Rate Normal, Irregular Rhythm Telemetry: Positive: Atrial fibrillation Abdomen Exam: Positive: Soft, Negative: Tenderness Extremity Exam: Negative: Tenderness Assessment /Plan Plan/VTE VTE Prophylaxis Ordered?: Yes Plan/Urinary Catheter Reason for insertion/continuin: Critical Pt monitoring Plan Sepsis possibly 2/2 Underlying UTI, Pneumonia CXR noted Blood cultures pending Sputum Cultures unrevealing Urine Culture notable for MRSA WBC elevated at 35K, T. Max 100.8 last night Cont empiric abx coverage with Vanco/Meropenem Patient hemodynamically stable this AM We will cont to monitor her progress Leukocytosis 2/2 Above We will cont to monitor CBC Atrial Fibrillation with RVR, controlled The patient's HR was uncontrolled once again last night, and at this time it appears that this is likely 2/2 the above sepsis She was restarted on Cardizem gtt, and her HR has been better controlled since Cont Eliquis Appreciate Cardiac input Decompensated CHF likely 2/2 Above Currently on Lasix 40mg IV BID as per Cardiology, Aldactone also added--This was held this morning as the patient did have some hypotension 2D ECHO results noted--the patient's aortic stenosis appears mild compared to her previous history We will cont to monitor her volume status Hx of Bioprosthetic Aortic Valve Replacement with Subsequent Severe Aortic Stenosis of Prosthesis Repeat 2D ECHO here reveals mild aortic stenosis Cardiology on board Hx of Ischemic CVA with Hemorrhagic Conversion CT of the Head noted here Patient was unable to obtain MRI 2/2 clinical condition Cont ASA, Statin Patient started on Eliquis Neurology on board CKD Stage IIIB Serum Cr appears to be at baseline COPD, stable Cont Current Regimen DVT Prophylaxis On Eliquis Prognosis: Guarded, m[facility] prognosis poor Dispo-pending clinical improvement, PT when appropriate. VS, I&O, 24H, Fishbone Vital Signs/I&O Vital Signs Date Time Temp Pulse Resp B/P (MAP) Pulse Ox O2 Delivery O2 Flow Rate FiO2 07/23/17 12:03 Nasal Cannula 2.0 07/23/17 12:00 98.9 80 18 110/63 (79 94 I&O- Last 24 Hours up to 6 AM 07/24/17 05:59 Intake Total 200 ml Balance 200 ml Laboratory Data 24H LABS Laboratory Tests 2 07/23/17 05:27: Anion Gap 7L, Glomerular Filtration Rate 46.6, Blood Urea Nitrogen 34H, Creatinine 1.17H, Sodium Level 134#L, Potassium Level 4.0#, Chloride Level 95L, Carbon Dioxide Level 32, Calcium Level 7.8L, TG-Cqr-B-Type Natriuretic Peptide [id number] CBC/BMP Laboratory Tests 07/23/17 05:27 Red Blood Count 3.80 L, Mean Corpuscular Volume 95.8, Mean Corpuscular Hemoglobin 29.7, Mean Corpuscular Hemoglobin Concent 31.0 L, Red Cell Distribution Width 16.7 H, Calcium Level 7.8 L Microbiology Microbiology 07/22/17 Blood Culture - Preliminary, Resulted 07/22/17 Blood Culture - Preliminary, Resulted 07/20/17 Blood Culture - Preliminary, Resulted No Growth after 48 hours. All Specime... 07/20/17 Blood Culture - Preliminary, Resulted No Growth after 48 hours. All Specime... 07/20/17 Urine Culture - Final, Complete Staph.aureus Methicillin Resis REGULO LEIVA MD Jul 23, 2017 13:43
--- NOTE | 2017-07-23 14:15 | PHACANCOPD ---
PHARMACY VANCOMYCIN DOSING Pt Demographics Demographics Patient Age:87 , Weight:61.400 , Gender: female Adjusted Body Weight Date: 07/22/17, Adjusted Body Weight: Kg Vancomycin Vancomycin Target Ranges: 15-20 mcg/ml Vancomycin Load Y/N: Yes Load Dose Date Time Vancomycin Load Dose: 1500MG Date: 07/22/17 Time: 1700 Vancomycin Dose Date: 07/22/17. Current Vancomycin Dose: [1G Q24H] Intermittent Dosing?: No Labs Micro Microbiology 07/22/17 Blood Culture - Preliminary, Resulted 07/22/17 Blood Culture - Preliminary, Resulted 07/20/17 Blood Culture - Preliminary, Resulted No Growth after 48 hours. All Specime... 07/20/17 Blood Culture - Preliminary, Resulted No Growth after 48 hours. All Specime... 07/20/17 Urine Culture - Final, Complete Staph.aureus Methicillin Resis Creatinine Clearance Date:07/22/17. Creatinine Clearance: . Assessment and Plan Maintaining Current Dose?: Yes Reason for dose change: No Dose Change Pharmacist Note Pharmacist Note 07/23/17: Scr is 1.17 today, up from 0.85 yesterday. I have scheduled a trough to be drawn prior to the 3rd dose tomorrow, 07/24/17, @1800. We will continue to monitor and make dose adjustments if needed. Date: 07/22/17. Pharmacist note: Pt. is a 87 year old female who was brought to the ED for increased confusion and SOB on 07/20/17. Urine screen tested positive for MRSA at that time. Pt. is now displaying a fever and has an increase in WBC. Pt. has never been on vancomycin at our facility. I gave patient a loading dose of vancomycin 1500mg and will follow with 1g IV Q24H. We will continue to monitor and adjust dose as needed. MADELINE SUN PHARMACY Jul 23, 2017 14:15
[2017-07-23] MEDS: ERYTHROMYCIN OPHTH OINT OU SCH ×3 (16:12→22:10)
--- NOTE | 2017-07-23 17:45 | ECGEPIP ---
Stationary ECG Study [facility] Test Date: 2017-07-23 Pat Name: GEORGINA CLAUDIO Department: Room: [place] [address] Gender: F Grounds Keeper: REJI : 1930 Requested By: JAYLIN Beckford Order Number: [id number] Reading MD: Lola Mcginnis Measurements Intervals [place] Rate: 71 P: MO: 0 QRS: -26 QRSD: 85 T: 179 QT: 432 QTc: 470 Interpretive Statements ATRIAL FIBRILLATION BORDERLINE LEFT AXIS DEVIATION VOLTAGE CRITERIA FOR LVH MARKED ST DEPRESSION, CONSIDER SUBENDOCARDIAL INJURY SIMILAR TO 07/21/17, STT ABNORMALITIES ARE MORE APPARENT Electronically Signed On 07-23-2017 17:45:05 EDT by Lola Mcginnis
[2017-07-23] MEDS: VANCOMYCIN HCL 1,000 MG, VIAL MATE ADAPTER 1 EACH in D5W 250 ML IV SCH (19:04)
[2017-07-23] MEDS: DOCUSATE SODIUM 100 MG CAP PO SCH ×2 (21:00→22:08)
[2017-07-24] VITALS (7 sets, daily range): BP systolic 100–118; BP diastolic 52–74
[2017-07-24] MEDS: FUROSEMIDE 40 MG/4 ML VIAL (J1940) IV SCH (01:23)
[2017-07-24] MEDS: SLF 3 ML SYR IV SCH ×3 (01:25→14:00)
[2017-07-24] MEDS: MEROPENEM INJ 500 MG in D5W MINI-BAG PLUS 100 ML IV SCH (05:22)
[2017-07-24 05:41] LABS: MEAN CORPUSCULAR HEMOGLOBIN 29.8 pg (27.0-33.0); MEAN CORPUSCULAR HGB CONC 31.5 g/dl (32.0-36.5); MEAN CORPUSCULAR VOLUME 94.5 fl (80.0-96.0); RED CELL DISTRIBUTION WIDTH 16.5 % (11.5-14.5); WHITE BLOOD COUNT 23.6 10^3/uL (4.0-10.0)
[2017-07-24 06:14] LABS: ANION GAP 7 MEQ/L (8-16); BLOOD UREA NITROGEN 36 MG/DL (7-18); CALCIUM LEVEL 7.8 MG/DL (8.8-10.2); CARBON DIOXIDE LEVEL 34 MEQ/L (21-32); CHLORIDE LEVEL 92 MEQ/L (98-107); CREATININE FOR GFR 0.93 MG/DL (0.55-1.02); GLOMERULAR FILTRATION RATE > 60.0 (>32); GLUCOSE, FASTING 119 MG/DL (83-110); SODIUM LEVEL 133 MEQ/L (136-145)
[2017-07-24] MEDS: IPRATROPIUM 0.02% SOLN 0.5MG/2.5 ML NEB INH SCH ×4 (07:06→20:11)
[2017-07-24] MEDS: ATORVASTATIN 20 MG TAB PO SCH ×2 (09:00→09:51)
[2017-07-24] MEDS: ERYTHROMYCIN OPHTH OINT OU SCH ×3 (09:51→21:00)
[2017-07-24] MEDS: APIXABAN 2.5 MG TAB (ELIQUIS) PO SCH ×2 (09:51→21:00)
[2017-07-24] MEDS: PANTOPRAZOLE 40MG TAB (PROTONIX) PO SCH (09:51)
[2017-07-24] MEDS: SPIRONOLACTONE 12.5MG PER 1/2 TABLET PO SCH (09:52)
[2017-07-24] MEDS: DOCUSATE SODIUM 100 MG CAP PO SCH ×2 (09:52→21:00)
[2017-07-24 10:16] LABS: VANCOMYCIN RANDOM 21.6 UG/ML
[2017-07-24] MEDS: VANCOMYCIN HCL 1,000 MG, VIAL MATE ADAPTER 1 EACH in D5W 250 ML IV SCH (11:35)
--- NOTE | 2017-07-24 12:28 | IPN ---
DATE: 07/24/2017 AGE: 87 Mrs. Poonam Escoto was seen earlier this morning. She was lying supine in bed and in no acute distress at rest and her daughter was at bedside. According to the daughter, she is doing better today when compared to the last couple of days. She was initially admitted on 07/20/2017 with shortness of breath, congestive heart failure (CHF), and atrial fibrillation with a rapid ventricular rate. In the month prior, she was treated in [place] for a CVA and at that time she was found to have paroxysmal atrial fibrillation. She has a history of hypertension , chronic kidney disease, aortic valve replacement with a bioprosthetic aortic valve in 2005. She currently has a DO NOT RESUSCITATE and DO NOT INTUBATE status. She is being now treated for pneumonia and probably sepsis. There is no report of bleeding. There is no orthopnea or paroxysmal nocturnal dyspnea. Her ventricular rate seems to be under control with the IV Cardizem and her blood pressure seems to be stable. Her CBC today revealed an improvement in her white blood cell count, but there is a drop in the platelet count. PHYSICAL EXAMINATION: The patient is alert and oriented but sleepy. In no acute distress at rest. VITAL SIGNS: Last vital signs this morning revealed a blood pressure of 104/74 with a pulse of 76, respirations 20, and a maximum temperature is 98.3 degrees Fahrenheit with an oxygen saturation of 96% on 3 liters nasal cannula. She has a positive fluid balance of 380 mL for 07/23/2017 and on 07/22/2017 the fluid balance was negative 1.3 liters. Examination of the head is atraumatic. Neck is supple. No jugular venous distention (JVD) appreciated. No carotid bruits. The lungs reveal minimal crackles at the bases but no wheezing. The heart examination revealed regular heart sounds without gallops. Point of maximum impulse (PMI) is slightly displaced. There is no rub. There is a systolic murmur over the pericardium, louder at the base of the aortic valve area with some minimal radiation to the neck. Neck is supple. Abdomen is soft and bowel sounds are present. Extremities revealed trace to +1 bilateral lower leg and ankle edema. Neurological examination was not done. LABORATORY DATA: CBC done today revealed a WBC of 23.6, hemoglobin 10.9, hematocrit 34.6 and platelets 102,000. BMP revealed a sodium of 133, potassium 4.0, chloride 90, CO2 34, BUN 36, creatinine 0.93, GFR more than 60, and fasting glucose 119 with a serum calcium of 7.8. Maximum vanco today was 21.6. Blood culture on 07/22/2017 reported Staphylococcus aureus, as well as on 07/20/2017. Blood culture was done yesterday and so far negative. IMPRESSION: 87-year-old woman with recent CVA, paroxysmal atrial fibrillation, congestive heart failure (CHF), sepsis and probably pneumonia was admitted on 07/20/2017 with congestive heart failure (CHF) and atrial fibrillation with a rapid ventricular rate. Cardiac status seems to be under control. She is being treated for pneumonia and sepsis and her diarrhea has improved. I am concerned about endocarditis if she does not improve, she has a history of aortic valve replacement with a bioprosthetic aortic valve and moderate mitral regurgitation was detected on her echocardiogram. Her medications were reviewed and I will continue the same for now and we will continue to monitor closely. She appears to be stable, as mentioned above, from a cardiac point of view, but in view of her comorbid condition and her underlying diagnosis, her prognosis is guarded and the family is aware of that. We will see how she does tomorrow, 07/25/2017. Case was discussed with hospitalist. SARAH
--- NOTE | 2017-07-24 14:05 | PHACANCOPD ---
PHARMACY VANCOMYCIN DOSING Pt Demographics Demographics Patient Age:87 , Weight:62.400 , Gender: female Adjusted Body Weight Date: 07/22/17, Adjusted Body Weight: Kg Events Past 24 Hours Events Past 24 Hours: YES: Diuretic Therapy (lasix stopped this morning), Change in CrCl, NO: Dialysis, Fever, Elevation in WBC, Pending Diagnostics, Pending Procedures, Other Vancomycin Vancomycin indication: sepsis Vancomycin Target Ranges: 15-20 mcg/ml Vancomycin Load Y/N: Yes Load Dose Date Time Vancomycin Load Dose: 1500MG Date: 07/22/17 Time: 1700 Vancomycin Dose Date: 07/22/17. Current Vancomycin Dose: [1G Q24H] Intermittent Dosing?: No Labs Labs Item Value Date Time White Blood Count 15.7 10^3/uL H 07/22/17510 White Blood Count 35.3 10^3/uL *H 07/23/17526 White Blood Count 23.6 10^3/uL H 07/24/17 0523 Random Vancomycin Level 21.6 UG/ML 07/24/17522 Creatinine 0.85 MG/DL 07/22/17510 Creatinine 1.17 MG/DL H 07/23/17526 Creatinine 0.93 MG/DL 07/24/17 0523 Micro Microbiology 07/23/17 Blood Culture, Received Pending 07/23/17 Blood Culture, Received Pending 07/22/17 Blood Culture - Preliminary, Resulted Staphylococcus Aureus 07/22/17 Blood Culture - Preliminary, Resulted Staphylococcus Aureus 07/20/17 Blood Culture - Preliminary, Resulted No Growth after 72 hours. All specime... 07/20/17 Blood Culture - Preliminary, Resulted No Growth after 72 hours. All specime... 07/20/17 Urine Culture - Final, Complete Staph.aureus Methicillin Resis Creatinine Clearance Date:07/24/17. Creatinine Clearance: [~39 ml/min]. Assessment and Plan Maintaining Current Dose?: No Reason for dose change: Change in serum Cr, Other Pharmacist Note Pharmacist Note Date: 07/24/17. Pharmacist note: vancomycin level drawn ~10 hours post second dose was 21.6 mcg/ml. SCr has improved today. I have changed her 1g q24h dosing to start 8 hours earlier (6 hours post random level). Blood cultures on 07/22 are preliminary positive for staph aureus, awaiting sensitivities (likely MRSA based on urine culture). Repeat blood cultures (07/23) have been NGTD. Of note, pt has a bioprosthetic valve and there is concern for endocarditis. We will continue to monitor. 07/23/17: Scr is 1.17 today, up from 0.85 yesterday. I have scheduled a trough to be drawn prior to the 3rd dose tomorrow, 07/24/17, @1800. We will continue to monitor and make dose adjustments if needed. Date: 07/22/17. Pharmacist note: Pt. is a 87 year old female who was brought to the ED for increased confusion and SOB on 07/20/17. Urine screen tested positive for MRSA at that time. Pt. is now displaying a fever and has an increase in WBC. Pt. has never been on vancomycin at our facility. I gave patient a loading dose of vancomycin 1500mg and will follow with 1g IV Q24H. We will continue to monitor and adjust dose as needed. Jose Schwartz Pharm.D. Jul 24, 2017 14:05
--- NOTE | 2017-07-24 16:45 | IPNPDOC ---
Subjective Date Seen The patient was seen on 07/24/17. Subjective Chief Complaint/HPI Patient seen and examined at the bedside. Appears a bit more awake today, and does follow simple commands. Denies any acute complaints at this time. Objective Physical Examination General Exam: Positive: Cooperative, No Acute Distress ENT Exam: Positive: Atraumatic, Negative: Mucous membr. moist/pink (dry mucous membranes) Neck Exam: Negative: JVD Chest Exam: Positive: Rales (faint bibasilar crackles on auscultation), Diminished Heart Exam: Positive: Rate Normal, Irregular Rhythm Telemetry: Positive: Atrial fibrillation Abdomen Exam: Positive: Soft, Negative: Tenderness Extremity Exam: Negative: Tenderness, Swelling Assessment /Plan Plan/VTE VTE Prophylaxis Ordered?: Yes Plan/Urinary Catheter Reason for insertion/continuin: Critical Pt monitoring Plan Staph Bacteremia possibly 2/2 Underlying Endocarditis, vs UTI/PNA Blood Cultures from 07/22 preliminarily notable for Staph Aureus-- susceptibilities pending Repeat Blood Cultures from 07/23 preliminarily notable for Gram + Cocci in clusters Possibly 2/2 Endocarditis given Hx of Bioprosthetic Aortic Valve Replacement in 2004--2D TTE ECHO from this admission with no notable vegetations appreciated Urine Culture also notable for MRSA Bacteremia I will order a CT of the Chest and Abd/Pel to look for other possible foci of infection However, I am concerned that this may be due to the patient's bioprosthetic valve I did discuss my concern with Cardiology and the possible need for a PAUL in the future. At this time, we will cont to monitor the patient on Vancomycin, and order another set of blood cultures as we ascertain other possible sources of infection In addition, I will discuss with the patient's Daughter/POA Caridad about whether her mother would even want to undergo such a procedure given her age, significant comorbidities, and clinical condition. Sepsis possibly 2/2 Endocarditis vs Underlying UTI, Pneumonia CXR noted Blood cultures as noted above Urine Culture notable for MRSA WBC improved from 35K to 23K, Patient afebrile over the last 24 hrs Cont empiric abx coverage with Vanco Patient hemodynamically stable this AM We will cont to monitor her progress Leukocytosis 2/2 Above We will cont to monitor CBC Atrial Fibrillation with RVR, controlled Rate controlled on Cardizem gtt Cont Eliquis Appreciate Cardiac input Decompensated CHF likely 2/2 Above Diuretics on hold 2/2 Septic picture 2D ECHO results noted--the patient's aortic stenosis appears mild compared to her previous history We will cont to monitor her volume status Hx of Bioprosthetic Aortic Valve Replacement with Subsequent Severe Aortic Stenosis of Prosthesis Repeat 2D ECHO here reveals mild aortic stenosis Cardiology on board Hx of Ischemic CVA with Hemorrhagic Conversion CT of the Head noted here Patient was unable to obtain MRI 2/2 clinical condition Cont Statin Patient started on Eliquis Neurology on board CKD Stage IIIB Serum Cr appears to be at baseline COPD, stable Cont Current Regimen DVT Prophylaxis On Eliquis Prognosis: Guarded, residential prognosis poor Dispo-pending clinical improvement, PT when appropriate. VS, I&O, 24H, Fishbone Vital Signs/I&O Vital Signs Date Time Temp Pulse Resp B/P (MAP) Pulse Ox O2 Delivery O2 Flow Rate FiO2 07/24/17 16:00 98.8 64 14 100/72 (81) 97 Nasal Cannula 3.0 I&O- Last 24 Hours up to 6 AM 07/25/17 06:00 Intake Total 550 ml Output Total 0 ml Balance 550 ml Laboratory Data 24H LABS Laboratory Tests 2 07/24/17 05:23: Anion Gap 7L, Glomerular Filtration Rate > 60.0, Blood Urea Nitrogen 36H, Creatinine 0.93, Sodium Level 133L, Potassium Level 4.0, Chloride Level 92L, Carbon Dioxide Level 34H, Calcium Level 7.8L, Random Vancomycin Level 21.6 07/24/17 16:18: CBC/BMP Laboratory Tests 07/24/17 05:23 Red Blood Count 3.66 L, Mean Corpuscular Volume 94.5, Mean Corpuscular Hemoglobin 29.8, Mean Corpuscular Hemoglobin Concent 31.5 L, Red Cell Distribution Width 16.5 H, Calcium Level 7.8 L Microbiology Microbiology 07/23/17 Blood Culture - Preliminary, Resulted 07/23/17 Blood Culture - Preliminary, Resulted 07/22/17 Blood Culture - Preliminary, Resulted Staphylococcus Aureus 07/22/17 Blood Culture - Preliminary, Resulted Staphylococcus Aureus 07/20/17 Blood Culture - Preliminary, Resulted No Growth after 72 hours. All specime... 07/20/17 Blood Culture - Preliminary, Resulted No Growth after 72 hours. All specime... 07/20/17 Urine Culture - Final, Complete Staph.aureus Methicillin Resis REGULO LEIVA MD Jul 24, 2017 16:45
--- NOTE | 2017-07-24 19:20 | REPUSA ---
CT of the chest without contrast Clinical statement: bacteremia. Technique: Multiple axial CT images were obtained with 5 mm cuts through the chest without administra tion of contrast. No comparison is available. Findings: There is no thoracic lymphadenopathy. The visualized portions of the thyroid gland is unrem arkable. The heart is enlarged. There are small pleural effusions that the lung bases. There is mild pulmonary vascular congestion. Scattered interstitial infiltrates are noted. Mild emphysema in the ri ght upper lobe. Limited imaging of the upper abdomen does not demonstrate any acute abnormalities. Th ere are no suspicious osseous lesions. There is mild dextroscoliosis. Impression: 1. Cardiomegaly with mild congestive heart failure. 2. Small bilateral pleural effusions with lower lobe atelectasis. 3. Mild emphysema the right upper lobe.
--- NOTE | 2017-07-24 19:20 | REPUSA ---
CT of the abdomen and pelvis without contrast Clinical statement: bacteremia. Technique: Multiple axial CT images were obtained from the base of the lungs to the floor of the pelv is utilizing 5 mm axial slices without administration of contrast. Coronal and sagittal reconstructio ns were also obtained. No comparison is available. Findings: Chest: The visualized lung bases demonstrates small bilateral pleural effusions and lower lobe atelec tasis. Abdomen: The kidneys are normal in size bilaterally. There is no evidence of hydronephrosis or nephro lithiasis. Minimal densities are seen in the dependent portion of the gallbladder. The liver, spleen, pancreas, and adrenal glands are unremarkable. The aorta demonstrates normal caliber and contour. Th ere is no abdominal lymphadenopathy. There is a small amount of perihepatic ascites. Pelvis: The bowel is unremarkable, with no obstructive or inflammatory changes. Diffuse sigmoid diver ticulosis is noted. The urinary bladder is catheterized and contracted. There is no pelvic lymphadeno north. Is a small amount of pelvic ascites noted. The other pelvic structures appear unremarkable. Bones: There are no suspicious osseous abnormalities seen. Levoscoliosis of the lumbar spine is noted . Impression: 1. Cholelithiasis without evidence of acute cholecystitis. 2. Extensive diverticulosis. No obstructive or inflammatory bowel changes. 3. Small amount of perihepatic and pelvic ascites. 4. The urinary bladder is catheterized and contracted. Bladder wall thickening cannot be excluded. Fo llow-up is suggested as clinically indicated.
[2017-07-25] VITALS: BP 123/60
[2017-07-25] MEDS: diltiaZEM 125 MG in NS 100 ML IV SCH (01:18)
[2017-07-25 04:00] VITALS: BP 108/68
[2017-07-25 05:39] LABS: MEAN CORPUSCULAR HEMOGLOBIN 30.1 pg (27.0-33.0); MEAN CORPUSCULAR HGB CONC 31.5 g/dl (32.0-36.5); MEAN CORPUSCULAR VOLUME 95.7 fl (80.0-96.0); RED CELL DISTRIBUTION WIDTH 16.2 % (11.5-14.5); WHITE BLOOD COUNT 21.4 10^3/uL (4.0-10.0)
[2017-07-25] MEDS: SLF 3 ML SYR IV SCH ×3 (06:00→21:23)
[2017-07-25 06:01] LABS: CALCIUM LEVEL 8.2 MG/DL (8.8-10.2); CREATININE FOR GFR 1.14 MG/DL (0.55-1.02); POTASSIUM SERUM 4.8 MEQ/L (3.5-5.1)
[2017-07-25] MEDS: IPRATROPIUM 0.02% SOLN 0.5MG/2.5 ML NEB INH SCH ×4 (07:16→20:35)
[2017-07-25 08:13] VITALS: BP 102/60
[2017-07-25] MEDS: ERYTHROMYCIN OPHTH OINT OU SCH ×3 (08:15→21:24)
[2017-07-25] MEDS: ATORVASTATIN 20 MG TAB PO SCH (08:15)
[2017-07-25] MEDS: DOCUSATE SODIUM 100 MG CAP PO SCH ×2 (08:15→21:00)
[2017-07-25] MEDS: APIXABAN 2.5 MG TAB (ELIQUIS) PO SCH ×2 (08:16→21:00)
[2017-07-25] MEDS: PANTOPRAZOLE 40MG TAB (PROTONIX) PO SCH (08:16)
--- NOTE | 2017-07-25 09:59 | IPNPDOC ---
Subjective Date Seen The patient was seen on 07/25/17. Subjective Chief Complaint/HPI Patient seen and examined at the bedside. She appears more lethargic and tired, but does nod her head appropriately to some questioning. The patient's blood cultures were noted to be positive for MRSA bacteremia. The patient's daughter has been updated at the bedside. No other acute events noted from overnight. Objective Physical Examination General Exam: Positive: No Acute Distress ENT Exam: Positive: Atraumatic Neck Exam: Negative: JVD Chest Exam: Positive: Diminished Heart Exam: Positive: Rate Normal, Irregular Rhythm Telemetry: Positive: Atrial fibrillation Abdomen Exam: Positive: Soft, Negative: Tenderness Extremity Exam: Negative: Tenderness, Swelling Assessment /Plan Plan/VTE VTE Prophylaxis Ordered?: Yes Plan/Urinary Catheter Reason for insertion/continuin: Critical Pt monitoring Plan Staph Bacteremia possibly 2/2 Underlying Endocarditis, vs UTI/PNA Blood Cultures from 07/22 notable for MRSA Repeat Blood Cultures from 07/23 preliminarily notable for Staph Aureus Repeat Blood Cultures from 07/24 pending Possibly 2/2 Endocarditis given Hx of Bioprosthetic Aortic Valve Replacement in 2004--2D TTE ECHO from this admission with no notable vegetations appreciated Urine Culture also notable for MRSA Bacteremia CT of the Chest and Abd/Pel with no other potential foci of infection found I am concerned that this may be due to the patient's bioprosthetic valve I did discuss my concern with Cardiology and the possible need for a PAUL in the future. At this time, we will cont to monitor the patient on Vancomycin, and await results of another set of blood cultures In addition, I did discuss the patient's condition with Daughter/ELIOT Mclean about whether her mother would even want to undergo such a procedure given her age, significant comorbidities, and clinical condition this morning. Will discuss this with Cardiology. We will consult ID to see the patient as well for the bacteremia. Sepsis possibly 2/2 Endocarditis vs Underlying UTI, Pneumonia CXR noted Blood cultures as noted above Urine Culture notable for MRSA WBC improved from 35K to 23K to 21K, Patient afebrile over the last 48 hrs Cont empiric abx coverage with Vanco Patient hemodynamically stable this AM We will cont to monitor her progress Leukocytosis 2/2 Above We will cont to monitor CBC Atrial Fibrillation with RVR, controlled Rate controlled on Cardizem gtt Cont Eliquis Appreciate Cardiac input Decompensated CHF likely 2/2 Above Diuretics on hold 2/2 Septic picture 2D ECHO results noted--the patient's aortic stenosis appears mild compared to her previous history We will cont to monitor her volume status Hx of Bioprosthetic Aortic Valve Replacement with Subsequent Severe Aortic Stenosis of Prosthesis Repeat 2D ECHO here reveals mild aortic stenosis Cardiology on board Hx of Ischemic CVA with Hemorrhagic Conversion CT of the Head noted here Patient was unable to obtain MRI 2/2 clinical condition Cont Statin Patient started on Eliquis Neurology on board CKD Stage IIIB Serum Cr appears to be at baseline COPD, stable Cont Current Regimen DVT Prophylaxis On Eliquis 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 VS, I&O, 24H, Fishbone Vital Signs/I&O Vital Signs Date Time Temp Pulse Resp B/P (MAP) Pulse Ox O2 Delivery O2 Flow Rate FiO2 07/25/17 08:13 97.6 84 18 102/60 (74) 95 Nasal Cannula 3.0 I&O- Last 24 Hours up to 6 AM 07/26/17 05:59 Intake Total 20 ml Output Total 125 ml Balance -105 ml Laboratory Data 24H LABS Laboratory Tests 2 07/25/17 05:18: Erythrocyte Sedimentation Rate 17, Anion Gap 3L, Glomerular Filtration Rate 48.0 , Blood Urea Nitrogen 41H, Creatinine 1.14H, Sodium Level 131L, Potassium Level 4.8, Chloride Level 91L, Carbon Dioxide Level 37H, Calcium Level 8.2L, C- Reactive Protein, Quantitative 10.70H CBC/BMP Laboratory Tests 07/25/17 05:18 Red Blood Count 3.75 L, Mean Corpuscular Volume 95.7, Mean Corpuscular Hemoglobin 30.1, Mean Corpuscular Hemoglobin Concent 31.5 L, Red Cell Distribution Width 16.2 H, Calcium Level 8.2 L Microbiology Microbiology 07/24/17 Blood Culture, Received Pending 07/24/17 Blood Culture, Received Pending 07/23/17 Blood Culture - Preliminary, Resulted Staphylococcus Aureus 07/23/17 Blood Culture - Preliminary, Resulted Staphylococcus Aureus 07/22/17 Blood Culture - Final, Complete Staph.aureus Methicillin Resis 07/22/17 Blood Culture - Final, Complete Staph.aureus Methicillin Resis 07/20/17 Blood Culture - Preliminary, Resulted No Growth after 72 hours. All specime... 07/20/17 Blood Culture - Preliminary, Resulted No Growth after 72 hours. All specime... 07/20/17 Urine Culture - Final, Complete Staph.aureus Methicillin Resis REGULO LEIVA MD Jul 25, 2017 09:59
[2017-07-25] MEDS: VANCOMYCIN HCL 1,000 MG, VIAL MATE ADAPTER 1 EACH in D5W 250 ML IV SCH (10:19)
[2017-07-25 12:03] VITALS: BP 98/52
--- NOTE | 2017-07-25 13:38 | IPN ---
DATE: 07/25/2017 AGE: 87 Mrs. Poonam Atkinson was seen early this morning. She was lying supine in bed in no acute distress at rest and daughter was at bedside. According to the daughter, she appears to be sleepy this morning. There is no report of orthopnea or paroxysmal nocturnal dyspnea. There is no report of bleeding. There is no new focal manifestation. She as found to be positive for Staphylococcus aureus, so far methicillin resistant and the plan is to consult with infectious disease, Dr. Calabrese. She is currently on vancomycin. There is also some concern about endocarditis. The case was discussed with her hospitalist, as well as the patient's daughter. PHYSICAL EXAMINATION: The patient appears sleepy but in no acute distress at rest. Her vital signs revealed a blood pressure of 102/60 with a pulse of 84, respirations 18, and maximum temperature is 99.3 degrees Fahrenheit with an oxygen saturation of 95% on 3 liters nasal cannula. HEAD: Normocephalic, atraumatic. Neck is supple with extended jugular. The lungs reveal minimal crackles at the bases but no wheezing. The heart examination reveals irregular heart sounds without gallops. There is a systolic murmur grade 1 to 2/6 over the precordium at the base of the heart/aortic valve area with some minimal radiation to the neck. Abdomen is soft. Extremities revealed trace to +1 bilateral lower leg edema. Neurologic examination was limited, not done. LABORATORY DATA: BMP done today revealed a sodium of 131, potassium 4.8, chloride 91, CO2 37, BUN 41, creatinine 1.14, GFR 48.0, fasting glucose 103 and calcium 8.2. CBC revealed a WBC of 21.4, hemoglobin 11.3, hematocrit 35.9, and platelets 125,000. ESR is 17 and yesterday it was 10. Chest CT done yesterday, 07/24/2017, revealed cardiomegaly with mild congestive heart failure (CHF), small bilateral pleural effusions, and mild emphysematous changes. Abdominal and pelvic CT done on 07/24/2017 revealed cholelithiasis but no cholecystitis, extensive diverticulosis but no inflammatory changes. Small amount of perihepatic and pelvic ascites. IMPRESSION: 1. Congestive heart failure (CHF) secondary to left ventricular diastolic dysfunction. 2. Atrial fibrillation, paroxysmal in nature. 3. Status post recent CVA. 4. History of aortic valve replacement with a bioprosthetic aortic valve. 5. Chronic obstructive pulmonary disease (COPD). 6. Hyperlipidemia. 7. History of hypertension. Mrs. Poonam Atkinson seems to be stable from a cardiac point of view, but prognosis is guarded in view of her comorbid conditions. It seems that her WBC and platelet count have improved, maybe she is responding to the antibiotics. She has developed some worsening renal function probably related to the diuretics and the spironolactone was discontinued. She underwent chest CT, as well as renal and pelvic CT yesterday, but without any contrast. I am concerned about her hyponatremia. She will need to be monitored. That may be a contributing factor to her drowsiness. We may have to readjust the quality of her fluid intake. It was a pleasure to participate in the care of Mrs. Poonam Atkinson for her underlying cardiac condition. Tomorrow, Dr. Mcginnis will be seeing her. [facility]
[2017-07-25 16:00] VITALS: BP 100/58
[2017-07-25] MEDS ORDERED: SODIUM CHLORIDE 0.9% 1000 ML IV SCH (17:45)
[2017-07-25] MEDS: NS 400 ML IV SCH (17:48)
[2017-07-25 19:11] VITALS: BP 107/57
[2017-07-26] VITALS (7 sets, daily range): BP systolic 93–119; BP diastolic 50–58
[2017-07-26] MEDS: diltiaZEM 125 MG in NS 100 ML IV SCH (00:20)
[2017-07-26] MEDS: NS 400 ML IV SCH (04:00)
[2017-07-26] MEDS: SLF 3 ML SYR IV SCH ×3 (04:27→21:14)
[2017-07-26 05:20] LABS: MEAN CORPUSCULAR HEMOGLOBIN 29.2 pg (27.0-33.0); MEAN CORPUSCULAR HGB CONC 31.2 g/dl (32.0-36.5); MEAN CORPUSCULAR VOLUME 93.5 fl (80.0-96.0); RED CELL DISTRIBUTION WIDTH 15.9 % (11.5-14.5); WHITE BLOOD COUNT 24.3 10^3/uL (4.0-10.0)
[2017-07-26 05:59] LABS: CALCIUM LEVEL 8.3 MG/DL (8.8-10.2); CREATININE FOR GFR 1.02 MG/DL (0.55-1.02); GLOMERULAR FILTRATION RATE 54.6 (>32); POTASSIUM SERUM 4.9 MEQ/L (3.5-5.1)
[2017-07-26] MEDS: IPRATROPIUM 0.02% SOLN 0.5MG/2.5 ML NEB INH SCH ×4 (07:41→20:15)
--- NOTE | 2017-07-26 07:41 | ECGEPIP ---
Stationary ECG Study [facility] Test Date: 2017-07-22 Pat Name: GEORGINA CLAUDIO Department: Room: [place] [address] Gender: F General Magistrate: MADDIE : [id number] Requested By: REGULO LEIVA Order Number: [id number] Reading MD: Ly Lopez Measurements Intervals Sanger Rate: 143 P: IN: 0 QRS: -40 QRSD: 89 T: 73 QT: 285 QTc: 441 Interpretive Statements ATRIAL FIBRILLATION WITH RAPID VENTRICULAR RESPONSE LEFT AXIS DEVIATION VOLTAGE CRITERIA FOR LVH POSSIBLE SEPTAL MYOCARDIAL INFARCTION, OF INDETERMINATE AGE MARKED ST DEPRESSION, CONSIDER SUBENDOCARDIAL INJURY RATE FASTER PSEUDONORMALIZATION T WAVES I AND II ST DERESSION MORE MARKED C/W 07/23/17 Electronically Signed On 07-26-2017 7:41:16 EDT by Ly Lopez
--- NOTE | 2017-07-26 07:59 | IPN ---
DATE: 07/26/2017 Mrs. Atkinson is not doing very well. She had trouble over the weekend. Her mental status was quite fluctuating and overall there is no obvious lack of progress, but fortunately there is also no clear-cut progression of her disease. This morning, she is somnolent. She opens her eyes on strong verbal stimulation , but would not communicate with me. According to the family just few minutes before though she was able to answer simple questions completely appropriately. Vital signs this morning: Blood pressure 105/92. Heart rate has been mostly 90s and low 100s. She is currently afebrile. Saturation is 95% on 3 liters of oxygen by nasal cannula. Fluid balance over the weekend was approximately equal. Weight is documented 63.6 kg. Her jugular venous pulse (JVP) is high, at least 5 or 6 cm above the clavicle. Lungs reveal diminished breath sounds over both bases, but I do not appreciate any wheezing or crackles. Heart exam reveals irregularly irregular rhythm. There is a harsh systolic ejection murmur over the aortic valve. There is also a very prominent diastolic murmur over the aortic valve radiating towards apex. Abdomen is soft and nontender. There is only minimal peripheral edema. I did not appreciate any skin lesions. Laboratory-mascorro, sodium 129, BUN 53, creatinine 1.0, for GFR 54, and glucose 88. CBC: WBC count 24,000, hemoglobin 10.9, hematocrit 34.6 and platelet count 104,000. She had several tests over the weekend and on Wednesday. CT of the abdomen and pelvis without contrast revealed cholelithiasis without evidence for cholecystitis. There was also extensive diverticulosis, but not diverticulitis. There was a small amount of ascites. Chest CT also revealed congestive heart failure, pleural effusions, but no obvious infiltrate as such. The initial blood cultures drawn on 07/20/2017 were negative, but the subsequent sets on 07/22/2017 and 07/23/2017 are both growing Staph aureus. Staph aureus resistant to methicillin was also growing from the initial urine culture on 07/20/2017. ASSESSMENT/PLAN: Mrs. Atkinson is a rather unfortunate 87-year-old female who has a remote history of aortic valve replacement with bioprosthesis and who suffered a stroke in May 2017. She was moved to [facility] from [place] by her family when her condition deteriorated and her brother was not able to take care of her at home. There was an obvious fluctuation in mental status that initially I thought was related to a stroke and delirium, but now it seems that the underlying problem might have been infection. The presence of Staph aureus from four blood cultures certainly raises suspicion that she has endocarditis, even though no obvious vegetation was seen on transthoracic echocardiogram. With bioprosthetic valve, this is certainly difficult to see. At this point, I do not believe that making definite diagnosis by transesophageal echocardiogram would make a big difference. She is not a candidate for open heart surgery and initial management would be purely medical. I spoke about this with her daughter and granddaughter who are at bedside. As far as the atrial fibrillation is concerned, she is reasonably well-controlled on Cardizem drip. It is difficult to transition to oral medications as her oral intake is very unpredictable. Finally, she is certainly in congestive heart failure, but because her oral intake is rather limited, it is difficult to put her on standing diuretics, but I will give her single dose of furosemide this morning. I am afraid that her condition is likely to deteriorate and if she indeed has endocarditis I am afraid that her chances of survival are rather minimal. SARAH
[2017-07-26] MEDS ORDERED: FUROSEMIDE 20 MG/2 ML VIAL (J1940) IV ONE (08:00)
[2017-07-26] MEDS: ATORVASTATIN 20 MG TAB PO SCH (09:00)
[2017-07-26] MEDS: PANTOPRAZOLE 40MG TAB (PROTONIX) PO SCH (09:00)
[2017-07-26] MEDS: DOCUSATE SODIUM 100 MG CAP PO SCH ×2 (09:00→20:52)
[2017-07-26] MEDS: APIXABAN 2.5 MG TAB (ELIQUIS) PO SCH ×2 (09:00→20:52)
[2017-07-26] MEDS: ERYTHROMYCIN OPHTH OINT OU SCH ×3 (09:01→21:43)
[2017-07-26] MEDS: VANCOMYCIN HCL 1,000 MG, VIAL MATE ADAPTER 1 EACH in D5W 250 ML IV SCH (11:01)
--- NOTE | 2017-07-26 14:24 | IPNPDOC ---
Subjective Date Seen The patient was seen on 07/26/17. Subjective Chief Complaint/HPI Patient seen and examined at the bedside. She remains lethargic appearing. She does answer some questions when prompted repeatedly. No acute overnight events noted. The patient remains hemodynamically stable, but still in rather poor condition overall. Daughter Caridad, updated at the bedside. Objective Physical Examination General Exam: Positive: No Acute Distress ENT Exam: Positive: Atraumatic Neck Exam: Negative: JVD Chest Exam: Positive: Diminished Heart Exam: Positive: Rate Normal, Irregular Rhythm Telemetry: Positive: Atrial fibrillation Abdomen Exam: Positive: Soft, Negative: Tenderness Extremity Exam: Negative: Tenderness, Swelling Assessment /Plan Plan/VTE VTE Prophylaxis Ordered?: Yes Plan/Urinary Catheter Reason for insertion/continuin: Critical Pt monitoring Plan Staph Bacteremia possibly 2/2 Underlying Endocarditis, vs UTI/PNA Blood Cultures from 07/22 notable for MRSA Repeat Blood Cultures from 07/23 notable for MRSA Repeat Blood Cultures from 07/24 preliminarily notable for Staph Aureus Possibly 2/2 Endocarditis given Hx of Bioprosthetic Aortic Valve Replacement in 2004--2D TTE ECHO from this admission with no notable vegetations appreciated Urine Culture also notable for MRSA Bacteremia CT of the Chest and Abd/Pel with no other potential foci of infection found I am concerned that this may be due to the patient's bioprosthetic valve Cardiology input noted--the patient is not a candidate for PAUL/Intervention given poor clinical condition At this time, we will cont to monitor the patient on Vancomycin, and await results of another set of blood cultures ID consulted Sepsis possibly 2/2 Endocarditis vs Underlying UTI, Pneumonia CXR noted Blood cultures as noted above Urine Culture notable for MRSA WBC remains elevated at 24K, Patient afebrile over the last 72 hrs Cont empiric abx coverage with Vanco Patient hemodynamically stable this AM We will cont to monitor her progress Leukocytosis 2/2 Above We will cont to monitor CBC Atrial Fibrillation with RVR, controlled Rate controlled on Cardizem gtt--still not consistently tolerating PO meds Cont Eliquis Appreciate Cardiac input Decompensated CHF likely 2/2 Above Diuretics on hold 2/2 Septic picture 2D ECHO results noted--the patient's aortic stenosis appears mild compared to her previous history We will cont to monitor her volume status Hx of Bioprosthetic Aortic Valve Replacement with Subsequent Severe Aortic Stenosis of Prosthesis Repeat 2D ECHO here reveals mild aortic stenosis Cardiology on board Hx of Ischemic CVA with Hemorrhagic Conversion CT of the Head noted here Patient was unable to obtain MRI 2/2 clinical condition Cont Statin Patient started on Eliquis Neurology on board CKD Stage IIIB Serum Cr appears to be at baseline COPD, stable Cont Current Regimen DVT Prophylaxis On Eliquis Prognosis: Guarded at best, fpc prognosis poor Dispo-pending clinical improvement, PT when appropriate. VS, I&O, 24H, Fishbone Vital Signs/I&O Vital Signs Date Time Temp Pulse Resp B/P (MAP) Pulse Ox O2 Delivery O2 Flow Rate FiO2 07/26/17 12:00 Nasal Cannula 3.0 07/26/17 11:54 98.1 103 18 118/57 (61) 94 I&O- Last 24 Hours up to 6 AM 07/27/17 06:00 Intake Total 400 ml Balance 400 ml Laboratory Data 24H LABS Laboratory Tests 2 07/26/17 05:00: Erythrocyte Sedimentation Rate 26, Anion Gap 7L, Glomerular Filtration Rate 54.6 , Blood Urea Nitrogen 53H, Creatinine 1.02, Sodium Level 129L, Potassium Level 4.9, Chloride Level 91L, Carbon Dioxide Level 31, Calcium Level 8.3L, C- Reactive Protein, Quantitative 11.10H 07/26/17 09:58: Vancomycin Level Trough 24.7H CBC/BMP Laboratory Tests 07/26/17 05:00 Red Blood Count 3.70 L, Mean Corpuscular Volume 93.5, Mean Corpuscular Hemoglobin 29.2, Mean Corpuscular Hemoglobin Concent 31.2 L, Red Cell Distribution Width 15.9 H, Calcium Level 8.3 L Microbiology Microbiology 07/24/17 Blood Culture - Preliminary, Resulted 07/24/17 Blood Culture - Preliminary, Resulted 07/23/17 Blood Culture - Final, Complete Staph.aureus Methicillin Resis 07/23/17 Blood Culture - Final, Complete Staph.aureus Methicillin Resis 07/22/17 Blood Culture - Final, Complete Staph.aureus Methicillin Resis 07/22/17 Blood Culture - Final, Complete Staph.aureus Methicillin Resis 07/20/17 Blood Culture - Final, Complete NO GROWTH AFTER 5 DAYS 07/20/17 Blood Culture - Final, Complete NO GROWTH AFTER 5 DAYS 07/20/17 Urine Culture - Final, Complete Staph.aureus Methicillin Resis REGULO LEIVA MD Jul 26, 2017 14:24
[2017-07-26] MEDS: GENTAMICIN 80 MG in APPROPRIATE DILUENT 1 EA IV SCH (16:36)
[2017-07-27] MEDS: diltiaZEM 125 MG in NS 100 ML IV SCH ×2 (00:53→23:51)
[2017-07-27] MEDS ORDERED: diphenhydrAMINE 25 MG CAP PO ONE (01:15)
[2017-07-27 03:38] VITALS: BP 108/55
[2017-07-27] MEDS: SLF 3 ML SYR IV SCH ×3 (03:39→22:00)
[2017-07-27] MEDS: GENTAMICIN 80 MG in APPROPRIATE DILUENT 1 EA IV SCH ×2 (03:39→15:00)
[2017-07-27 05:34] LABS: MEAN CORPUSCULAR HEMOGLOBIN 29.3 pg (27.0-33.0); MEAN CORPUSCULAR HGB CONC 31.7 g/dl (32.0-36.5); MEAN CORPUSCULAR VOLUME 92.4 fl (80.0-96.0); RED CELL DISTRIBUTION WIDTH 15.9 % (11.5-14.5); WHITE BLOOD COUNT 27.8 10^3/uL (4.0-10.0)
[2017-07-27 05:59] LABS: CALCIUM LEVEL 8.4 MG/DL (8.8-10.2); CREATININE FOR GFR 1.04 MG/DL (0.55-1.02); GLOMERULAR FILTRATION RATE 53.4 (>32); POTASSIUM SERUM 4.9 MEQ/L (3.5-5.1); VANCOMYCIN RANDOM 19.7 UG/ML
[2017-07-27 06:20] LABS: IMMATURE PLATELET FRACTION % 12.5 % (0.0-9.6)
--- NOTE | 2017-07-27 07:22 | CR ---
DATE OF CONSULTATION: 07/26/2017 HISTORY OF PRESENT ILLNESS: Ms. Atkinson is a 87-year-old female who was brought in by daughter who says her mother was more confused. She has a history of stoke and was admitted to [facility] in [place]. States she has right sided weakness. Patient had an intracerebral hemorrhage and was hospitalized for about 5 days then transferred to a rehabilitation facility. She was there for about 3 weeks, then was sent home to be with her son and continue with outpatient rehabilitation. The mother called her daughter on the day prior to admission stating that her son who she lives with was drinking and could not take care of her. She was brought home via medical transportation to [place] by her daughter. Got home the day prior to admission when her daughter noticed that she was very confused and therefore she was brought into the hospital. The patient has a history of aortic stenosis for which she had underwent a bioprosthetic aortic valve replacement in 2005. The patient was told that she needed another valve replacement done potentially through a transcatheter aortic valve replacement (TAVR). The patient had initially refused to have that done but was reconsidering as she was having increasing shortness of breath. Prior to her stroke, she was completely independent, living with her son but driving, visiting with friends, going out for lunch with her friends and walking. On arrival to the emergency room, she was afebrile. Her white count was close to normal. She had blood cultures two sets were negative but urine culture was positive for Methicillin-resistant staphylococcus aureus (MRSA). 48 hours later, her white count worsened and she had low grade fever of 100.8, blood cultures drawn on 07/22, 07/23 and 07/24 were all positive for MRSA. The patient has been on IV vancomycin with persistent bacteremia. PAST MEDICAL HISTORY: Significant for: Severe aortic stenosis status post aortic valve replacement 2005. Chronic kidney disease stage III. Chronic obstructive pulmonary disease (COPD). Hypertension. Paroxysmal atrial fibrillation. Varicose veins. Right bundle branch block. Essential tremors. Osteoarthritis. Recent intracerebral bleed with right-sided weakness. PAST SURGICAL HISTORY: Bioprosthetic valve replacement 2005. Hysterectomy 82. Cystoscopy with perforated colon many years ago. Cataract surgery. SOCIAL HISTORY: Her daughter Pavithra is her power of sports attorney. She drinks socially. She is a former smoker. She has two other kids in the area and a granddaughter who is an RN. MEDICATIONS: - vancomycin 750 mg IV every 24 hours - Colace 100 mg by mouth twice daily - erythromycin both eyes three times daily - Diltiazem IV drip - Eliquis 2.5 mg by mouth twice daily - Protonix 40 mg by mouth daily - Atrovent and Xopenex as needed - Tylenol as needed - Zofran 4 mg IV every 6 as needed - Lipitor 40 mg by mouth daily ALLERGIES: SULFA DRUGS. LABORATORY DATA: White count 24.3, hemoglobin 10.8, hematocrit 34.6, platelets 104. White count has peaked 3 days ago at 235.3. ESR 26. Sodium 129, potassium 4.9, chloride 91, bicarb 31, BUN 53, creatinine 1.02, glucose 88, calcium 8.3, CRP 11.1. BNP 129,000 which has increased from mid 30,000 in the previous 3 days. Microbiology: Urine culture on 07/20 was positive for MRSA. Blood cultures two sets were negative. 07/22 and 07/23 and 07/24, total of six sets all are positive for MRSA. OLEGARIO is 1. Vancomycin trough was 24.7 on 07/26. Urinalysis had +2 blood, +2 leukocyte esterase. IMAGING STUDIES: Head CT from 07/20 showed old left occipital, temporal lobe infarct, small right cerebellar infarction and small vessel disease. Chest and abdominal CT shows cardiomegaly with congestive heart failure, small bilateral effusion. Abdominal CT showed no evidence of infection. Cholelithiasis. No cholecystitis. Extensive diverticulosis. Chest x-ray showed no pleural effusion. No focal infiltrate. There is a focal dense lesion in the right humeral neck nonspecific. Metastasis versus enchondroma versus a bony infarct. On physical exam, she is a lethargic female in mild respiratory discomfort. She only opens her eyes when in pain especially when I press her right upper quadrant or try to open her eyes. She has been afebrile for the past 3 days. T-max is 97.3, pulse 97, respirations 18, blood pressure 93/57, O2 sat 95% on 3 liters nasal cannula. Heart: Normal S1, S2. Irregularly. The irregular holosystolic murmur 3/6 heard over the aortic area radiating to the apex. Diastolic murmur is also noted. Abdomen: Soft, tender in the right upper quadrant. No rebound. No hepatosplenomegaly. Extremities: Minimal edema at the ankles +1, +2 dorsalis pedal pulses. There are no rashes to suggestive of endocarditis such as seen with lesion or ulcers. No petechial lesions. Neurologic: Exam could not be assessed. The patient does not respond. She only opened her eyes stating ouch. Seems to be able to move all extremities. She has her eyes closed. Echocardiogram done on 07/[address] Aponte shows normal left ventricular systolic function with mild concentric LVH. Bioprosthetic aortic valve in the aortic valve position with moderate regurgitation and mild stenosis , mitral annular calcification, dilated right atrium with severe tricuspid regurgitation. IMPRESSION: This is an 87-year-old female with a history of bioprosthetic aortic valve that was placed in 2005 who has needed to have a TAVR procedure done over the past couple of years because of increasing shortness of breath. The patient a month ago developed a hemorrhagic stroke and currently is admitted with Methicillin-resistant staphylococcus aureus (MRSA) bacteremia with three consecutive days of positive MRSA blood cultures. This is very suggestive of endocarditis possibly of the prosthetic valve. The patient has been on vancomycin for the past 4 days with persistent bacteremia. Vancomycin was started on 07/22 along with meropenem which had been discontinued. She also has developed congestive heart failure and has moderate regurgitation. The suspicion is very high that she has endocarditis and unfortunately MRSA endocarditis is a bad prognosis especially if on the prosthetic valve and usually would lead to surgical intervention. The patient is not a good surgical candidate. She recently had a hemorrhagic stroke and currently is in congestive heart failure. The patient has worsening mental status which could be related to infection versus more cerebral emboli. PLAN: Continue IV vancomycin with a goal of vancomycin trough between 15 and 20, add gentamicin 80 mg IV every 12 hours with a goal of peak less than 5 and a trough of less than 1. Add rifampin 300 mg by mouth twice daily for presumptive prosthetic valve endocarditis, although that would interact with Eliquis. I would suggest also continuing aspirin for anticoagulation along with Eliquis as rifampin does decrease Eliquis levels as it is cyt P450 inducer. I agree with Dr. Mcginnis that a PAUL at this point may not be needed. The patient will need to be treated for presumptive endocarditis at this point, depending on her prognosis and whether she improves or not, then further decisions will be made. Daughter has signed a DO NOT RESUSCITATE/DO NOT INTUBATE order but is struggling with her decision whether this is the best decision. I have discussed with her that the prognosis is poor, whether the patient has surgery or even endocarditis but at this age, especially in the setting of congestive heart failure and recent stroke. Also the next issue that will need to be discussed is her feeding as the patient has not been eating for the past couple of days and may need tube feeding and that needs to be addressed. Repeat blood cultures tomorrow and in 2 days until cultures are negative. Will also had daptomycin susceptibility. SARAH
[2017-07-27] MEDS: IPRATROPIUM 0.02% SOLN 0.5MG/2.5 ML NEB INH SCH ×4 (07:36→20:35)
[2017-07-27 08:00] VITALS: BP 99/60
[2017-07-27] MEDS: APIXABAN 2.5 MG TAB (ELIQUIS) PO SCH (08:22)
[2017-07-27] MEDS: DOCUSATE SODIUM 100 MG CAP PO SCH ×2 (08:22→21:59)
[2017-07-27] MEDS: ATORVASTATIN 20 MG TAB PO SCH (08:22)
[2017-07-27] MEDS: PANTOPRAZOLE 40MG TAB (PROTONIX) PO SCH (08:22)
[2017-07-27] MEDS: ERYTHROMYCIN OPHTH OINT OU SCH ×3 (08:23→22:00)
--- NOTE | 2017-07-27 08:50 | IPN ---
DATE OF SERVICE: 07/27/2017 Mrs. Atkinson's condition is slowly deteriorating. Apparently she was again very agitated last night. There has been very inconsistent oral intake even though she did eat some and she took some of her medications but we have a really difficult time taking her Eliquis on time. She did not have any high fevers last night. Her T-max documented was 98.6. This morning, she is still very somnolent. She is arousable with loud verbal stimuli, but she would not establish any communication or answer even simple questions. Vital signs: Blood pressure 99/60, has been in similar range throughout the night. She remains in atrial fibrillation with heart rate around 100 beats per minute. Saturation is 94% on 2 liters of oxygen by nasal cannula. Her JVP is still high at least 506 cm above clavicle. Heart: Exam reveals irregular rhythm. There is harsh systolic ejection murmur over the aortic valve radiating to her carotid arteries at least 3-4/6 intensity and there is equally loud diastolic murmur again best heard over the aortic area but also well heard at the apex. Abdomen is soft, nontender that I can elicit from the patient. I do not appreciate obvious hepatosplenomegaly. There is still some peripheral edema but it is markedly improved, mostly I suspect due to poor oral intake. Her weight is documented at 63 kg. LABORATORY: Hemoglobin is 11.2, hematocrit 35, platelet count 96,000 and WBC count 28,000 with basic metabolic panel sodium 132, potassium 4.9, BUN 57, creatinine 1 and glucose 96. Her CRP is trending up at 14.9. ASSESSMENT/PLAN: Mrs. Atkinson is a 87-year-old female who has a remote history of bioprosthetic aortic valve replacement. She suffered a stroke in May 2017 while in [place] and after prolonged rehab was transferred by her family to [facility] because her son was not able to take care of her and her condition was rapidly deteriorating. After arrival here, she had altered mental status that now I believe is likely related to the underlying infection. She has multiple blood cultures positive for Methicillin-resistant staphylococcus aureus (MRSA). In this setting, I am afraid that the diagnosis of endocarditis is almost certain. I read the note of Dr. Calabrese who is concurring with this opinion. At this point, it is going to be an issue of purely medical management. She is certainly not a candidate for surgical intervention. I spoke with her daughter at bedside this morning again and I again reiterated that the prognosis of even surgically treated Methicillin-resistant staphylococcus aureus (MRSA) prosthetic endocarditis is generally poor. At this point, the selection of antibiotics as per ID and primary team. I think she should get a PICC line which would make the administration simpler. I am going to discontinue her Eliquis because she has not been able to take it consistently and also even though there is a unequivocal benefit, there is also risk with her dropping platelet count and high probability of metastatic infection. As far as congestive heart failure is concerned, she looks improved. I think it is mostly on account of her having poor oral intake and consequently I am not going to give her any diuretics today. Atrial fibrillation has been reasonably well-controlled on Cardizem drip. I would continue the same as her oral intake is unpredictable. Her condition in my opinion is guarded at best and I am afraid that she will most likely not survive her multiple illnesses. MTDEmile
[2017-07-27 11:35] VITALS: BP 112/58
--- NOTE | 2017-07-27 12:26 | IPNPDOC ---
Date Seen The patient was seen on 07/27/17. Progress Note SUBJECTIVE: Patient is a 87-year-old female, ultimately, lethargic seen at bedside. Her daughter is present. No complaint of chest pain, shortness of breath, productive sputum, cough or hemoptysis. OBJECTIVE PHYSICAL EXAMINATION: VITAL SIGNS: Please see below. GENERAL: No acute distress HEENT: PERRLA. Throat clear. Neck supple, no JVD, no adenopathy CARDIOVASCULAR: Irregular irregular. RESPIRATORY: Clear to auscultation. ABDOMINAL: Soft, nontender, nondistended, positive bowel sounds EXTREMITIES: No edema, no calf tenderness NEUROLOGICAL: Cranial nerves II through XII intact PSYCHOLOGICAL: Negative LABORATORY DATA: Please see below. MICROBIOLOGY: Please see below. DVT prophylaxis ordered?: yes ASSESSMENT AND PLAN: This is a 87-year-old female gravely ill with suspected endocarditis. PROBLEMS: 1.Staph Bacteremia possibly 2/2 Underlying Endocarditis, vs UTI/PNA multiple blood cultures positive for MRSA. ID consulted and antibiotics expanded to IV Vanco and Gentamycin. PICC line ordered. Anticipate 6-8weeks therapy. Appreciate Dr. Calabrese's direction. 2.Sepsis possibly 2/2 Endocarditis vs Underlying UTI, Pneumonia CXR noted Blood cultures as noted above Urine Culture notable for MRSA WBC remains slightly worse at 27k. Patient afebrile, appreciated ID input. Cont empiric abx coverage with Vanco and Gent Patient hemodynamically stable this AM We will cont to monitor her progress 3.Leukocytosis 2/2 Above We will cont to monitor CBC 4.Metabolic Encephalopathy: secondary to sepsis 5.Atrial Fibrillation with RVR, controlled Rate controlled on Cardizem gtt--still not consistently tolerating PO meds Cont Eliquis Appreciate Cardiac input 6.Decompensated CHF likely 2/2 Above Diuretics on hold 2/2 Septic picture 2D ECHO results noted--the patient's aortic stenosis appears mild compared to her previous history We will cont to monitor her volume status 7.Hx of Bioprosthetic Aortic Valve Replacement with Subsequent Severe Aortic Stenosis of Prosthesis 2D ECHO here reveals mild aortic stenosis Cardiology on board 8.Hx of Ischemic CVA with Hemorrhagic Conversion CT of the Head noted here Patient was unable to obtain MRI 2/2 clinical condition Cont Statin Patient started on Eliquis Neurology on board 9.CKD Stage IIIB Serum Cr appears to be at baseline 10.COPD, stable Cont Current Regimen 11.DVT Prophylaxis On Eliquis Prognosis: Poor, family is aware. DISPOSITION: pending clinical improvement, PT when appropriate. VS, I&O, 24H, Fishbone Vital Signs/I&O Vital Signs Date Time Temp Pulse Resp B/P (MAP) Pulse Ox O2 Delivery O2 Flow Rate FiO2 07/27/17 11:35 97.9 103 18 112/58 (76) 95 Nasal Cannula 3.0 I&O- Last 24 Hours up to 6 AM 07/28/17 06:00 Intake Total 120 ml Output Total 175 ml Balance -55 ml Laboratory Data 24H LABS Laboratory Tests 2 07/27/17 05:11: Immature Platelet Fraction 12.5H, Erythrocyte Sedimentation Rate 26, Anion Gap 8 , Glomerular Filtration Rate 53.4, Blood Urea Nitrogen 57H, Creatinine 1.04H, Sodium Level 132L, Potassium Level 4.9, Chloride Level 93L, Carbon Dioxide Level 31, Calcium Level 8.4L, C-Reactive Protein, Quantitative 14.90H, Random Vancomycin Level 19.7 CBC/BMP Laboratory Tests 07/27/17 05:11 Red Blood Count 3.82 L, Mean Corpuscular Volume 92.4, Mean Corpuscular Hemoglobin 29.3, Mean Corpuscular Hemoglobin Concent 31.7 L, Red Cell Distribution Width 15.9 H, Calcium Level 8.4 L Microbiology Microbiology 07/27/17 Blood Culture, Received Pending 07/24/17 Blood Culture - Final, Complete Staph.aureus Methicillin Resis 07/24/17 Blood Culture - Final, Complete Staph.aureus Methicillin Resis 07/23/17 Blood Culture - Final, Complete Staph.aureus Methicillin Resis 07/23/17 Blood Culture - Final, Complete Staph.aureus Methicillin Resis 07/22/17 Blood Culture - Final, Complete Staph.aureus Methicillin Resis 07/22/17 Blood Culture - Final, Complete Staph.aureus Methicillin Resis 07/20/17 Blood Culture - Final, Complete NO GROWTH AFTER 5 DAYS 07/20/17 Blood Culture - Final, Complete NO GROWTH AFTER 5 DAYS 07/20/17 Urine Culture - Final, Complete Staph.aureus Methicillin Resis BRYCE LOWERY DO Jul 27, 2017 12:26
[2017-07-27 15:30] LABS: GENTAMICIN LEVEL TROUGH 2.7 MCG/ML (0.0-2.0)
[2017-07-27 15:39] VITALS: BP 114/57
[2017-07-27 15:50] VITALS: BP 100/50
[2017-07-27 16:13] LABS: CALCIUM LEVEL 8.9 MG/DL (8.8-10.2); CREATININE FOR GFR 1.02 MG/DL (0.55-1.02); GLOMERULAR FILTRATION RATE 54.6 (>32); POTASSIUM SERUM 4.8 MEQ/L (3.5-5.1)
[2017-07-27] MEDS: VANCOMYCIN HCL 750 MG, VIAL MATE ADAPTER 1 EACH in D5W 250 ML IV SCH (17:34)
[2017-07-27 20:00] VITALS: BP 116/63
[2017-07-27] MEDS ORDERED: GENTAMICIN 80 MG in APPROPRIATE DILUENT 1 EA IV SCH (21:00)
[2017-07-28] VITALS (9 sets, daily range): BP systolic 103–128; BP diastolic 52–80; O2SAT 89
[2017-07-28] MEDS ORDERED: FUROSEMIDE 40 MG/4 ML VIAL (J1940) IV ONE ×2 (01:45→08:15)
[2017-07-28] MEDS: SLF 3 ML SYR IV SCH ×3 (04:02→21:13)
--- NOTE | 2017-07-28 06:14 | IPN ---
DATE: 07/27/2017 SUBJECTIVE: Mrs. Atkinson seems to be a little bit more alert today. She was able to answer a few questions for me. She does not seem to be in any pain. She has remained afebrile for the past four days. OBJECTIVE: VITAL SIGNS: Temperature is 97.8, pulse 88, respirations 18, blood pressure 116/63, O2 saturation 93% on three liters nasal cannula. HEART: Normal S1,S2, irregularly irregular with a holosystolic murmur /6. LUNGS: Few crackles at the bases. ABDOMEN: Soft, mildly tender in the right upper quadrant. Bowel sounds normal. EXTREMITIES: No calf tenderness. She has +2 ankle edema. NEUROLOGIC: The patient is able to move both extremities as she was able to sit up with assistance. LABORATORY DATA: White count is 27.8 which has continued to increase in the past three days, hemoglobin 11.2, hematocrit 35.3, platelets 96. ESR 26. Sodium 132, potassium 4.8, chloride 94, bicarb 32, BUN 57, creatinine 1.02, glucose 106, calcium 8.9. CRP 14.9, which continues to increase. Gentamicin peak was 1.6 on 07/27 and trough was 2.7. Random vancomycin level was 19.7. MEDICATIONS: - gentamicin 80 mg IV every 18 hours - vancomycin 750 mg IV every 24 hours - rifampin 300 mg by mouth twice a day which currently day one of triple antibiotics that the patient has tolerated. MICROBIOLOGY: Blood cultures are positive for MRSA starting 07/22, with persistent positive cultures until 07/24. A 07/27 blood culture is pending. IMPRESSION: 1. Methicillin-resistant Staphylococcus aureus (MRSA) bacteremia with presumptive endocarditis, possibly of prosthetic aortic valve. Moderately severe aortic regurgitation. The patient is currently day one of IV vancomycin, gentamicin and rifampin, hopefully will be able to clear bacteremia. The patient has very poor prognosis as she already had severe cardiac issues with dyspnea and needed a valve replacement before this infection. 2. Recent history of stroke with right-sided hemiparesis. Most recent head CT showed a left occipital lobe and temporal infarction and a small right cerebellar infarction of undetermined age. 3. Poor oral intake. Family was concerned about her decreased intake and whether she would be a candidate for tube feeding as IV fluids have been held due to congestive heart failure. PLAN: Continue current IV antibiotic with a goal of vancomycin trough between 15 and 20, and gentamicin peak between 3-5 and trough of less than one. Continue rifampin, monitor liver function tests. Will obtain daptomycin susceptibilities as well in case the patient has persistent bacteremia with vancomycin as her minimal inhibitory concentration (OLEGARIO) is equal to one. The patient has very poor prognosis, not a surgical candidate at this time. She has a DO NOT RESUSCITATE (DNR) order. Case has been discussed at length with her daughter and her granddaughter who is a registered nurse.
[2017-07-28 06:37] LABS: MEAN CORPUSCULAR HEMOGLOBIN 29.3 pg (27.0-33.0); MEAN CORPUSCULAR HGB CONC 32.6 g/dl (32.0-36.5); MEAN CORPUSCULAR VOLUME 90.1 fl (80.0-96.0)
[2017-07-28 06:55] LABS: CALCIUM LEVEL 8.6 MG/DL (8.8-10.2); CREATININE FOR GFR 0.98 MG/DL (0.55-1.02); GLOMERULAR FILTRATION RATE 57.2 (>32); POTASSIUM SERUM 4.3 MEQ/L (3.5-5.1)
[2017-07-28] MEDS: IPRATROPIUM 0.02% SOLN 0.5MG/2.5 ML NEB INH SCH ×4 (07:26→20:51)
[2017-07-28 07:27] LABS: IMMATURE PLATELET FRACTION % 15.7 % (0.0-9.6)
--- NOTE | 2017-07-28 08:07 | IPN ---
DATE OF SERVICE: 07/28/2017 Mrs. Atkinson has not been doing well. Her mental status is fluctuating. This morning she is arousable and she will answer question or two appropriately but apparently there are periods where she is difficult to arouse. Her oxygen demand has been increasing. She is now on 40% FiO2 by Venturi mask, and saturating in mid to high 90s. She remains afebrile. Heart rate around 100, atrial fibrillation. Blood pressure 126/80. Neurologic status is as above. Her JVP is still high. Lungs reveal crackles bilaterally fine but not very many. Good air movement. Heart exam is unchanged with harsh both systolic and diastolic murmur consistent with dysfunction of aortic valve. I do not appreciate rub or gallop. Abdomen is soft. No obvious tenderness. There is mild peripheral edema but much improved since admission. Her fluid balance yesterday was about equal. No weight has been documented this morning. LABORATORY: CBC reveals WBC count 20,000 with hemoglobin 11.2, hematocrit 34, platelet count 84,000. Basic metabolic panel was sodium 130, potassium 4.3, BUN 62, creatinine 1 and glucose 127. Her CRP was 14.5. ASSESSMENT/PLAN: Mrs. Atkinson is an 87-year-old female who suffered a stroke about a month and a half ago and after rehab was discharged home to be transferred by her family to [facility]. She was brought to hospital because of altered mental status. It turns out that she has staph aureus from multiple blood cultures and is likely that she actually has aortic valve endocarditis. She is certainly not a surgical candidate and she will be left to purely medical therapy. The antibiotic management is managed by Dr. Calabrese. From perspective of atrial fibrillation, she remains reasonably rate-controlled. I discontinued Apixaban yesterday because I am afraid that the risk outweighed the benefits at this point. I will not restart the medication unless her condition starts improving. The higher need for oxygen is a worrisome sign and I am afraid that the prognosis is poor. Nevertheless, I still believe that we should continue medical management short of invasive procedures or intubation. I reiterated it with her daughter at bedside this morning.
--- NOTE | 2017-07-28 08:14 | REP ---
Portable chest, 01:51 a.m., single AP view, patient sitting: Comparisons 07/22/2017. There is a chest CT dated 07/24 2017. Half half On the comparison CT there are bilateral pleural effusions. These are again identified on the portable chest today. The parenchymal density throughout the entire right lung is increased compared to the left suggesting right lung infiltrate. Cardiac size is normal. The nic and mediastinum are unremarkable. There is thoracic scoliosis convex right thoracic spine and left in the lumbar spine. Impression: Bilateral pleural effusions. Diffuse right lung infiltrate. Signed by Kris Gomez MD 07/28/2017 08:05 A
[2017-07-28] MEDS: ATORVASTATIN 20 MG TAB PO SCH (08:37)
[2017-07-28] MEDS: DOCUSATE SODIUM 100 MG CAP PO SCH ×2 (08:37→21:00)
[2017-07-28] MEDS: PANTOPRAZOLE 40MG TAB (PROTONIX) PO SCH (08:37)
[2017-07-28] MEDS: ERYTHROMYCIN OPHTH OINT OU SCH (08:39)
--- NOTE | 2017-07-28 12:59 | IPNPDOC ---
Date Seen The patient was seen on 07/28/17. Progress Note SUBJECTIVE: Patient is a 87-year-old female seen at bedside. She is relatively lethargic but her daughter is present. Her daughter informs me that she did eat a relatively good meal last evening. OBJECTIVE PHYSICAL EXAMINATION: VITAL SIGNS: Please see below. GENERAL: No acute distress, relatively lethargic HEENT: PERRLA. Throat clear. Neck supple, no JVD CARDIOVASCULAR: Regular rate and rhythm. RESPIRATORY: Clear to auscultation bilaterally]. ABDOMINAL: Soft, nontender, nondistended, positive bowel sounds EXTREMITIES: No edema, no calf tenderness NEUROLOGICAL: Cranial nerves II through XII grossly intact PSYCHOLOGICAL: Negative LABORATORY DATA: Please see below. MICROBIOLOGY: Please see below. Multiple blood cultures positive for MRSA DVT prophylaxis ordered?: Yes ASSESSMENT AND PLAN: This is a 87-year-old female with presumed endocarditis. Poor prognosis PROBLEMS: 1.Staph Bacteremia possibly 2/2 . Suspected Underlying Endocarditis, vs UTI/PNA multiple blood cultures positive for MRSA. ID consulted and antibiotics expanded to IV Vanco and Gentamycin and rifampin. PICC line will be ordered tomorrow. Anticipate 6-8weeks therapy. Appreciate Dr. Calabrese's direction. 2.Sepsis possibly 2/2 Suspected Endocarditis vs Underlying UTI, Pneumonia CXR noted Blood cultures as noted above Urine Culture notable for MRSA WBC remains slightly worse at 20k. Patient afebrile Cont empiric abx coverage with Vanco, Gent, rifampin Patient hemodynamically stable this AM We will cont to monitor her progress 3.Leukocytosis 2/2 Above Trending downward. We'll continue to follow. 4.Metabolic Encephalopathy: secondary to sepsis 5.Atrial Fibrillation with RVR, controlled Rate controlled on Cardizem gtt--still not consistently tolerating PO meds Cont Eliquis Appreciate Cardiac input 6.Decompensated CHF likely 2/2 Above Diuretics on hold 2/2 Septic picture 2D ECHO results noted--the patient's aortic stenosis appears mild compared to her previous history Chest x-ray demonstrates bilateral pleural effusions, diffuse right lung infiltrate. We will give her a one-time dose of Lasix IV. We will cont to monitor her volume status 7.Hx of Bioprosthetic Aortic Valve Replacement with Subsequent Severe Aortic Stenosis of Prosthesis 2D ECHO here reveals mild aortic stenosis Cardiology on board 8.Hx of Ischemic CVA with Hemorrhagic Conversion CT of the Head noted here Patient was unable to obtain MRI 2/2 clinical condition Cont Statin Patient started on Eliquis Neurology on board 9.CKD Stage IIIB Serum Cr appears to be at baseline 10.COPD, stable Cont Current Regimen 11.DVT Prophylaxis On Eliquis Prognosis: Poor, family is aware. DISPOSITION: Again had a lengthy discussion with the patient's daughter. She remains DNR/DNI. As not appear to be a good candidate for any invasive procedures. Family is aware that her prognosis is poor Pending clinical improvement, PT when appropriate. DISPOSITION: . VS, I&O, 24H, [facility] Vital Signs/I&O Vital Signs Date Time Temp Pulse Resp B/P (MAP) Pulse Ox O2 Delivery O2 Flow Rate FiO2 07/28/17 12:00 97.6 63 18 109/67 (81) 93 Nasal Cannula 2.0 07/28/17 08:00 40 I&O- Last 24 Hours up to 6 AM 07/29/17 06:00 Intake Total 120 ml Balance 120 ml Laboratory Data 24H LABS Laboratory Tests 2 07/27/17 14:17: Anion Gap 6L, Glomerular Filtration Rate 54.6, Blood Urea Nitrogen 57H, Creatinine 1.02, Sodium Level 132L, Potassium Level 4.8, Chloride Level 94L, Carbon Dioxide Level 32, Calcium Level 8.9, Gentamicin Level Trough 2.7*H 07/27/17 21:48: Gentamicin Level Peak 1.6L 07/27/17 23:18: Gentamicin Level Peak 5.4 07/28/17 06:11: Anion Gap 5L, Glomerular Filtration Rate 57.2, Blood Urea Nitrogen 62H, Creatinine 0.98, Sodium Level 130L, Potassium Level 4.3, Chloride Level 92L, Carbon Dioxide Level 33H, Calcium Level 8.6L, Immature Platelet Fraction 15.7H, Erythrocyte Sedimentation Rate 27, C-Reactive Protein, Quantitative 14.50H CBC/BMP Laboratory Tests 07/27/17 14:17 Calcium Level 8.9 07/28/17 06:11 Calcium Level 8.6 L, Red Blood Count 3.82 L, Mean Corpuscular Volume 90.1, Mean Corpuscular Hemoglobin 29.3, Mean Corpuscular Hemoglobin Concent 32.6, Red Cell Distribution Width 16.0 H Microbiology Microbiology 07/28/17 Blood Culture, Received Pending 07/27/17 Blood Culture - Preliminary, Resulted 07/24/17 Blood Culture - Final, Complete Staph.aureus Methicillin Resis 07/24/17 Blood Culture - Final, Complete Staph.aureus Methicillin Resis 07/23/17 Blood Culture - Final, Complete Staph.aureus Methicillin Resis 07/23/17 Blood Culture - Final, Complete Staph.aureus Methicillin Resis 07/22/17 Blood Culture - Final, Complete Staph.aureus Methicillin Resis 07/22/17 Blood Culture - Final, Complete Staph.aureus Methicillin Resis 07/20/17 Blood Culture - Final, Complete NO GROWTH AFTER 5 DAYS 07/20/17 Blood Culture - Final, Complete NO GROWTH AFTER 5 DAYS 07/20/17 Urine Culture - Final, Complete Staph.aureus Methicillin Resis BRYCE LOWERY DO Jul 28, 2017 12:59
[2017-07-28] MEDS: VANCOMYCIN HCL 750 MG, VIAL MATE ADAPTER 1 EACH in D5W 250 ML IV SCH (16:51)
[2017-07-28] MEDS ORDERED: GENTAMICIN 80 MG in APPROPRIATE DILUENT 1 EA IV SCH (22:00)
[2017-07-29] VITALS (10 sets, daily range): BP systolic 100–154; BP diastolic 52–80
[2017-07-29] MEDS: diltiaZEM 125 MG in NS 100 ML IV SCH ×2 (00:59→11:39)
[2017-07-29] MEDS ORDERED: DIGOXIN INJ 0.5 MG/2 ML AMP (J1160) IV STA (02:17)
[2017-07-29] MEDS: SLF 3 ML SYR IV SCH ×3 (04:43→20:20)
[2017-07-29] MEDS ORDERED: DIGOXIN INJ 0.5 MG/2 ML AMP (J1160) IV ONE ×3 (05:00→10:00)
[2017-07-29 05:42] LABS: MEAN CORPUSCULAR HEMOGLOBIN 29.4 pg (27.0-33.0); MEAN CORPUSCULAR HGB CONC 32.6 g/dl (32.0-36.5); MEAN CORPUSCULAR VOLUME 90.4 fl (80.0-96.0); RED CELL DISTRIBUTION WIDTH 16.2 % (11.5-14.5); WHITE BLOOD COUNT 18.3 10^3/uL (4.0-10.0)
[2017-07-29 06:00] LABS: CALCIUM LEVEL 8.6 MG/DL (8.8-10.2); CREATININE FOR GFR 0.99 MG/DL (0.55-1.02); GLOMERULAR FILTRATION RATE 56.5 (>32); POTASSIUM SERUM 4.4 MEQ/L (3.5-5.1)
[2017-07-29] MEDS ORDERED: FUROSEMIDE 40 MG/4 ML VIAL (J1940) IV ONE (08:00)
--- NOTE | 2017-07-29 08:17 | IPN ---
DATE OF SERVICE: 07/29/2017 Mrs. Atkinson unfortunately has not been doing well. She continues to require more oxygen and yesterday her atrial fibrillation got in tachycardic range. She got several doses of digoxin, total 0.75 mg and her dose of Cardizem was increased to 7.5 mg/hr. This morning, she is alert. She answers some questions appropriately but for the most part is lethargic. Blood pressure is 124/54, heart rate around 100-110 and she is saturating only 93% on 35% FiO2. Her JVP is still high. Lungs reveal bilateral crackles. Air movement is fair. Heart exam is unchanged with irregular rhythm with harsh systolic ejection murmur over the aortic valve and also fairly loud diastolic murmur from aortic valve heard all the way to apex. Abdomen is soft, nontender. There is mild peripheral edema. Neurologically, I do not appreciate any focal deficit but she is certainly obtunded. LABORATORY SAEED: Basic metabolic panel reveals potassium 4.2, BUN 61, creatinine 1, glucose 122, troponin 0.1. CBC revealed hemoglobin 11.6, hematocrit 35.6 and platelet count 128,000. WBC count is 18.3. Chest x-ray yesterday was consistent with congestive heart failure and probable superimposed infiltrates. ASSESSMENT AND PLAN: Mrs. Atkinson is an 87-year-old female who suffered a stroke in late May 2017 and after a few weeks was transferred to [facility] from [place]. She was found to have several blood cultures positive for Methicillin-resistant staphylococcus aureus (MRSA). 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 We still have been supportive with antibiotics. Her white cell count is decreasing which is somewhat optimistic, but on the other hand, her respiratory status has been declining. Even though there is a considerable potential for toxicity, I am going to give her a dose of Lasix this morning and if she does not respond, will give her even higher dose later today. If her oxygen requirement should increase any further, she is going to succumb to this issue and consequently the renal dysfunction will not matter.
[2017-07-29] MEDS: IPRATROPIUM 0.02% SOLN 0.5MG/2.5 ML NEB INH SCH ×4 (08:51→20:49)
[2017-07-29] MEDS: ATORVASTATIN 20 MG TAB PO SCH (08:56)
[2017-07-29] MEDS: DOCUSATE SODIUM 100 MG CAP PO SCH (08:56)
[2017-07-29] MEDS: PANTOPRAZOLE 40MG TAB (PROTONIX) PO SCH (08:56)
[2017-07-29] MEDS: GENTAMICIN 80 MG in APPROPRIATE DILUENT 1 EA IV SCH (10:28)
--- NOTE | 2017-07-29 11:21 | IPNPDOC ---
Subjective Date Seen The patient was seen on 07/29/17. Subjective Chief Complaint/HPI The patient is a 87-year-old female admitted with a reason for visit of Atrial Fibrillation With Rvr. Events since last encounter The patient was seen and examined at bedside this morning. Her daughter was there to answer some questions. Patient was able to communicate. Per the daughter the patient has been eating a lot better today. She has been communicating that she needs to have a bowel movement because she has been constipated for the last couple of days. Patient's blood culture from 07/27 came back positive for staph aureus. Patient's blood culture from 07/28 came back negative for growth for 24 hours. She had no overnight events per nursing and no telemetry events. Gastrointestinal: Reports: Constipation Objective Physical Examination General Exam: Positive: No Acute Distress ENT Exam: Positive: Atraumatic Chest Exam: Positive: Diminished (currently on 15 L Ventimask of oxygen) Heart Exam: Positive: Rate Normal, Irregular Rhythm Telemetry: Positive: Atrial fibrillation Abdomen Exam: Negative: Soft (distended. Slight tenderness on palpation on the lower quadrants. Small bruises appreciated on the right upper lateral region), Tenderness Extremity Exam: Negative: Tenderness, Swelling Assessment /Plan Assessment PROBLEMS: 1.Staph Bacteremia possibly 2/2 . 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 07/27 but cultures came back positive for staph aureus. 07/28 blood cultures currently show no growth for 24 hours. ID consulted and antibiotics expanded to IV Vanco and Gentamycin and rifampin, will ask if new blood cultures are needed. PICC line being placed today anticipate 6-8weeks therapy. Appreciate Dr. Calabrese's direction. Chest xray from 07/28 showed Bilateral pleural effusions. Diffuse right lung infiltrate. 2.Sepsis possibly 2/2 Suspected Endocarditis vs Underlying UTI, Pneumonia Urine Culture notable for MRSA WBC improving 18.3 will continue with empiric antibiotic coverage with Vanco, Gent, rifampin. Patient hemodynamically stable this AM. We will cont to monitor her progress 3.Leukocytosis 2/2 Above Trending downward. We'll continue to follow. 4.Metabolic Encephalopathy: secondary to sepsis 5.Atrial Fibrillation with RVR, controlled Rate controlled on Cardizem gtt which was increased from 5 to 7.5 overnight.--still not consistently tolerating PO meds in the a.m. Will continue with Eliquis. Cardiology saw the patient this morning and has ordered Lasix. If she does not respond to this dose he will increase the dose later on today. Appreciate Cardiac recommendations. 6.Decompensated CHF likely 2/2 Above Diuretics on hold 2/2 Septic picture 2D ECHO results noted--the patient's aortic stenosis appears mild compared to her previous history Chest x-ray demonstrates bilateral pleural effusions, diffuse right lung infiltrate. Cardiac has ordered Lasix today. If she does not respond to this dose he will increase the dose later on today. Appreciate continued Cardiac recommendations. 7. Hx of Bioprosthetic Aortic Valve Replacement with Subsequent Severe Aortic Stenosis of Prosthesis. 2D ECHO here reveals mild aortic stenosis. Cardiology on board. Likely the cause of the bacteremia but unsure. Patient is getting a PICC line placed today to continue IV antibiotics. 8.Hx of Ischemic CVA with Hemorrhagic Conversion. CT of the Head noted here. Patient was unable to obtain MRI 2/2 clinical condition. Cont Statin. Patient started on Eliquis. Neurology on board 9.CKD Stage IIIB. Serum Cr appears to be at baseline 10.COPD, stable. Cont Current Regimen 11. The patient. Patient has Colace on board. We'll discontinue that and add Dulcolax suppositories once a day. 11.DVT Prophylaxis. On Eliquis Plan/VTE VTE Prophylaxis Ordered?: Yes (Eliquis) Plan/Urinary Catheter Reason for insertion/continuin: Critical Pt monitoring VS, I&O, 24H, Fishbone Vital Signs/I&O Vital Signs Date Time Temp Pulse Resp B/P (MAP) Pulse Ox O2 Delivery O2 Flow Rate FiO2 07/29/17 04:50 93 Venturi Mask 35 07/29/17 04:50 8.0 07/29/17 04:42 110 07/29/17 04:40 122/54 (76) 07/29/17 04:00 97.5 20 I&O- Last 24 Hours up to 6 AM 07/30/17 05:59 Intake Total 37.5 ml Output Total 125 ml Balance -87.5 ml Laboratory Data 24H LABS Laboratory Tests 2 07/28/17 21:11: Gentamicin Level Trough 2.0 07/29/17 05:16: Nucleated Red Blood Cells % (auto) 0.0, Erythrocyte Sedimentation Rate 27, Anion Gap 9, Glomerular Filtration Rate 56.5, Blood Urea Nitrogen 61H, Creatinine 0.99, Sodium Level 132L, Potassium Level 4.4, Chloride Level 92L, Carbon Dioxide Level 31, Calcium Level 8.6L, Troponin I 0.10, C-Reactive Protein , Quantitative 12.90H CBC/BMP Laboratory Tests 07/29/17 05:16 Red Blood Count 3.94 L, Mean Corpuscular Volume 90.4, Mean Corpuscular Hemoglobin 29.4, Mean Corpuscular Hemoglobin Concent 32.6, Red Cell Distribution Width 16.2 H, Calcium Level 8.6 L Microbiology Microbiology 07/28/17 Blood Culture - Preliminary, Resulted No growth after 24 hours . All specim... 07/27/17 Blood Culture - Preliminary, Resulted 07/24/17 Blood Culture - Final, Complete Staph.aureus Methicillin Resis 07/24/17 Blood Culture - Final, Complete Staph.aureus Methicillin Resis 07/23/17 Blood Culture - Final, Complete Staph.aureus Methicillin Resis 07/23/17 Blood Culture - Final, Complete Staph.aureus Methicillin Resis 07/22/17 Blood Culture - Final, Complete Staph.aureus Methicillin Resis 07/22/17 Blood Culture - Final, Complete Staph.aureus Methicillin Resis 07/20/17 Blood Culture - Final, Complete NO GROWTH AFTER 5 DAYS 07/20/17 Blood Culture - Final, Complete NO GROWTH AFTER 5 DAYS 07/20/17 Urine Culture - Final, Complete Staph.aureus Methicillin Resis GME ATTESTATION GME ATTESTATION My preceptor for this patient encounter was physically present in the building during the encounter and was fully available. As needed, all aspects of the patient interview, examination, medical decision making process, and medical care plan development were reviewed and approved by the preceptor. Preceptor is aware and concurs with the plan as stated in the body of this note and will attest to such by his/her cosignature. ATTENDING NOTE Attending Note: I have independently examined this patient and all aspects of the exam and treatment decisions have been discussed with the resident. A member of the hospitalist staff will continue to follow this patient through discharge. JAYLIN MEJIA, Jul 29, 2017 07:44 BRYCE LOWERY DO Aug 01, 2017 14:57
[2017-07-29 12:34] LABS: GENTAMICIN LEVEL PEAK 4.9 MCG/ML (3.0-10.0)
[2017-07-29] MEDS: BISACODYL 10 MG SUPP PR SCH (13:57)
[2017-07-29] MEDS ORDERED: SODIUM CHLORIDE 0.9% INJ 10 ML SYR IV PRN (15:15)
--- NOTE | 2017-07-29 17:16 | REP ---
Procedure: PICC line insertion with Alisa-Alexandra The procedure was performed under the direct supervision of Dr. Smith. The risks and benefits of the procedure were explained to the patient and informed consent was obtained. The right basilic vein was localized using ultrasound guidance. The skin was prepped and draped in a sterile fashion. 2% lidocaine was used as a local anesthetic. Using ultrasound guidance the basilic vein was cannulated and a 0.018 guidewire was inserted and advanced to the SVC using fluoroscopic guidance. The needle was removed and a 5.5 [place] dilator and peel-away sheath was inserted over the guide wire. A 5.5 [place] dual lumen catheter was cut to length of 44 cm. The dilator was removed and the catheter was inserted over the guide wire with the tip ending in the SVC. The peel-away sheath was removed and the catheter was flushed with heparinized saline as per Hospital protocol. The catheter was affixed to the skin and a sterile dressing was applied. The the patient tolerated the procedure well and there were no immediate complications. 0.4 minutes of fluoro time was utilized for this procedure. Reviewed by UNA Alfonso 07/29/2017 04:44 PSigned by Sylvester Smith MD 07/29/2017 05:07 P
[2017-07-29] MEDS: SODIUM CHLORIDE 0.9% INJ 10 ML SYR IV SCH (17:30)
[2017-07-29] MEDS: VANCOMYCIN HCL 750 MG, VIAL MATE ADAPTER 1 EACH in D5W 250 ML IV SCH (17:30)
[2017-07-30] VITALS (7 sets, daily range): BP systolic 118–141; BP diastolic 52–65
[2017-07-30] MEDS: diltiaZEM 125 MG in NS 100 ML IV SCH ×2 (04:01→17:15)
[2017-07-30] MEDS: SODIUM CHLORIDE 0.9% INJ 10 ML SYR IV SCH ×2 (05:32→18:17)
[2017-07-30] MEDS: SLF 3 ML SYR IV SCH ×3 (05:32→22:35)
[2017-07-30 05:40] LABS: MEAN CORPUSCULAR HEMOGLOBIN 29.3 pg (27.0-33.0); MEAN CORPUSCULAR HGB CONC 31.9 g/dl (32.0-36.5); MEAN CORPUSCULAR VOLUME 91.9 fl (80.0-96.0); PLATELET COUNT, AUTOMATED 125 10^3/uL (150-450); WHITE BLOOD COUNT 19.2 10^3/uL (4.0-10.0)
[2017-07-30 05:44] LABS: ADD MANUAL DIFFER YES; DIFF SLIDE NUMBER 56
[2017-07-30 06:04] LABS: ERYTHROCYTE SEDIMENTATION RATE 31 mm/hr (0-42)
[2017-07-30 06:13] LABS: CALCIUM LEVEL 8.3 MG/DL (8.8-10.2); CREATININE FOR GFR 1.05 MG/DL (0.55-1.02); DIGOXIN LEVEL 1.5 NG/ML (0.5-2.0); GLOMERULAR FILTRATION RATE 52.8 (>32); POTASSIUM SERUM 4.6 MEQ/L (3.5-5.1)
[2017-07-30 06:30] LABS: ANISOCYTOSIS 1+
[2017-07-30] MEDS: IPRATROPIUM 0.02% SOLN 0.5MG/2.5 ML NEB INH SCH ×4 (07:12→21:07)
[2017-07-30] MEDS ORDERED: FUROSEMIDE 40 MG/4 ML VIAL (J1940) IV ONE (08:15)
--- NOTE | 2017-07-30 08:51 | IPN ---
DATE: 07/30/2017 Mrs. Atkinson had a relatively uneventful night considering her condition. Unfortunately, she remains obtunded. The communication with her as a relatively limited and she requires supplemental oxygen. This morning she is lethargic. On verbal communication, she would open her eyes, but I could not get any meaningful response otherwise. Her maximum temperature (t-max) last night was 99.3, heart rate has been around 80-100. She is saturating 91% on 35% FiO2. Blood pressure 118/62. Her jugular venous pressure is still very high. There are crackles throughout, most prominent over the left base. Heart exam is unchanged and reveals irregular rhythm with both systolic and diastolic murmur, best heard over the aortic valve, fairly loud, 3 or 4/6 intensity. Abdomen is soft. No obvious tenderness. There is minimal peripheral edema. Neurologically, she is somnolent but turns head and has some fairly minimal movements of extremities. LABORATORY: CBC reveals WBC count 19.2, hemoglobin 11.2, hematocrit 35, platelet count 125,000. Basic metabolic panel: Potassium 4.6, BUN 59, creatinine 1 and glucose 126. CRP was 12.6 yesterday. ASSESSMENT AND PLAN: Mrs. Atiknson is an 87-year-old female who came with altered mental status. She has a history of recent stroke in May that occurred in [place]. Initially, the impression was that her altered mental status is mostly on account of neurologic condition, but eventually became obvious that she is infected. She grew multiple blood cultures positive for methicillin resistant Staphylococcus aureus (MRSA) and she continues to be positive even on 07/27/2017 still. The blood culture is positive even after 5 days of IV antibiotics. It is likely that she has endocarditis of her aortic bioprosthesis. She is certainly not a surgical candidate. We decided to continue supportive management short of intubation, resuscitation or consideration of open heart surgery. This was discussed with her family extensively on several days. Today, she still has signs of congestive heart failure and I am going to give her another dose of Lasix. We have to be careful as her oral intake is rather limited and consequently I am not going to give her a very high or standing dose. Her condition is certainly poor and I am afraid that it is likely that it is going to deteriorate further. I think that her daughter is aware of his expectation and we talk about it on a daily basis. I stopped her anticoagulation and at this point I am afraid that the risk probably outweighs the benefits. Dr. Casey is the covering civil engineering manager for the weekend. I will not ask him to see the patient directly but if there are some urgent issues, please do not hesitate to contact him for assistance.
[2017-07-30] MEDS: ATORVASTATIN 20 MG TAB PO SCH (09:00)
[2017-07-30] MEDS: PANTOPRAZOLE 40MG TAB (PROTONIX) PO SCH (09:00)
--- NOTE | 2017-07-30 09:50 | IPNPDOC ---
Subjective Date Seen The patient was seen on 07/30/17. Subjective Chief Complaint/HPI The patient is a 87-year-old female admitted with a reason for visit of Atrial Fibrillation With Rvr. Events since last encounter Patient was seen and examined this morning at bedside. Her daughter was at bedside to ask and answer any questions. The patient was very lethargic and was unable to answer any questions. Patient had a bowel movement this morning and hasn't eaten her breakfast. Daughter states states that she had poor oral intake last night and this morning. Daughter has no questions this morning. General: Reports: ROS Unobtainable (patient was unresponsive) Objective Physical Examination General Exam: Negative: Alert (somnolent and lethargic) ENT Exam: Positive: Atraumatic Neck Exam: Positive: JVD Chest Exam: Positive: Diminished (currently on 15 L Ventimask of oxygen, diffused crackles bilateral.) Heart Exam: Positive: Rate Normal, Irregular Rhythm Telemetry: Positive: Atrial fibrillation Abdomen Exam: Positive: Soft, Negative: Tenderness Extremity Exam: Positive: Swelling, Negative: Tenderness Neuro Exam: Positive: Other (minimal movement of her extremities.), Negative: Normal Speech, Normal Tone Psych Exam: Negative: Mental status NL Assessment /Plan Assessment 1.Staph Bacteremia possibly 2/2 . 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 07/27 but cultures came back positive for staph aureus. 07/28 blood cultures currently show no growth for 48 hours. Blood cultures were drawn today. We'll continue with IV Vanco and Gentamycin and rifampin. PICC line was placed yesterday anticipate 6-8weeks therapy. Chest xray from 07/28 showed Bilateral pleural effusions. Diffuse right lung infiltrate. Appreciate Dr. Calabrese's direction. Patient hasn't been receiving rifampin since 07/27 evening due to lethargy . Will discuss with Dr. Calabrese if it will be appropriate to change to INJ form. 2.Sepsis possibly 2/2 Suspected Endocarditis vs Underlying UTI, Pneumonia Urine Culture notable for MRSA WBC table at 19.2 will continue with Vanco, Gent , rifampin. Patient hemodynamically stable this AM. We will cont to monitor. 3.Leukocytosis 2/2 Above Trending downward. We'll continue to follow. 4.Metabolic Encephalopathy: secondary to sepsis 5.Atrial Fibrillation with RVR, controlled Rate controlled on Cardizem gtt 7.5.- -still not consistently tolerating PO intake in the a.m. Cardiology saw the patient this morning and has ordered Lasix 40mg IV, will not be aggressive with diuresis because of patient poor PO intake. Eliquis has been stopped because of risk outweighs the benefit. If we need continued recommendation Dr. Casey will be taking over this weekend, which we can call him if we need further assistance. 6.Decompensated CHF likely 2/2 Above Diuretics on hold 2/2 Septic picture 2D ECHO results noted--the patient's aortic stenosis appears mild compared to her previous history Chest x-ray demonstrates bilateral pleural effusions, diffuse right lung infiltrate. Cardiology saw the patient this morning and has ordered Lasix 40mg IV, will not be aggressive with diuresis because of patient poor PO intake. 7. Hx of Bioprosthetic Aortic Valve Replacement with Subsequent Severe Aortic Stenosis of Prosthesis. 2D ECHO here reveals mild aortic stenosis. Cardiology on board. Likely the cause of the bacteremia but unsure. Patient is getting a PICC line placed today to continue IV antibiotics. 8.Hx of Ischemic CVA with Hemorrhagic Conversion. CT of the Head noted here. Patient was unable to obtain MRI 2/ clinical condition. Cont Statin. Eliquis has been stopped, per cardiology because of risk outweighs the benefit. Neurology on board 9.CKD Stage IIIB. Serum Cr appears to be at baseline 10.COPD, stable. Cont Current Regimen 11. Constipation. Patient has Colace on board. We'll discontinue that and add Dulcolax suppositories once a day. 11.DVT Prophylaxis. Elkus was stopped on 07/27 because of patient's risk of bleeding the outweighs the benefits. Patient has been placed on SCDs Plan/VTE VTE Prophylaxis Ordered?: Yes (SCDs) Plan/Urinary Catheter Reason for insertion/continuin: Critical Pt monitoring VS, I&O, 24H, Sandra Vital Signs/I&O Vital Signs Date Time Temp Pulse Resp B/P (MAP) Pulse Ox O2 Delivery O2 Flow Rate FiO2 07/30/17 08:00 97.0 81 18 135/65 (88) 98 Venturi Mask 10.0 35 I&O- Last 24 Hours up to 6 AM 07/31/17 05:59 Intake Total 7.5 ml Output Total 150 ml Balance -142.5 ml Laboratory Data 24H LABS Laboratory Tests 2 07/29/17 11:40: Troponin I 0.19#H, Gentamicin Level Peak 4.9 07/29/17 17:03: Vancomycin Level Trough 13.6 07/30/17 05:29: Immature Granulocyte % (Auto) , White Blood Count 19.2H, Red Blood Count 3.82L, Hemoglobin 11.2L, Hematocrit 35.1L, Mean Corpuscular Volume 91.9, Mean Corpuscular Hemoglobin 29.3, Mean Corpuscular Hemoglobin Concent 31.9L, Red Cell Distribution Width 16.0H, Platelet Count 125L, Monocytes # (Auto) , Nucleated Red Blood Cells % (auto) 0.0, Neutrophils 84H, Lymphocytes (Manual) 4L , Monocytes (Manual) 8, Metamyelocytes 3H, Myelocytes 1H, Platelet Estimate DECREASED, Anisocytosis 1+, Erythrocyte Sedimentation Rate 31, Anion Gap 7L, Glomerular Filtration Rate 52.8, Blood Urea Nitrogen 59H, Creatinine 1.05H, Sodium Level 132L, Potassium Level 4.6, Chloride Level 91L, Carbon Dioxide Level 34H, Calcium Level 8.3L, C-Reactive Protein, Quantitative 12.60H, Digoxin Level 1.5 CBC/BMP Laboratory Tests 07/30/17 05:29 Red Blood Count 3.82 L, Mean Corpuscular Volume 91.9, Mean Corpuscular Hemoglobin 29.3, Mean Corpuscular Hemoglobin Concent 31.9 L, Red Cell Distribution Width 16.0 H, Monocytes # (Auto) , Calcium Level 8.3 L Microbiology Microbiology 07/30/17 Blood Culture, Received Pending 07/28/17 Blood Culture - Preliminary, Resulted No Growth after 48 hours. All Specime... 07/27/17 Blood Culture - Final, Complete Staph.aureus Methicillin Resis 07/24/17 Blood Culture - Final, Complete Staph.aureus Methicillin Resis 07/24/17 Blood Culture - Final, Complete Staph.aureus Methicillin Resis 07/23/17 Blood Culture - Final, Complete Staph.aureus Methicillin Resis 07/23/17 Blood Culture - Final, Complete Staph.aureus Methicillin Resis 07/22/17 Blood Culture - Final, Complete Staph.aureus Methicillin Resis 07/22/17 Blood Culture - Final, Complete Staph.aureus Methicillin Resis 10/3/17 Blood Culture - Final, Complete NO GROWTH AFTER 5 DAYS 07/20/17 Blood Culture - Final, Complete NO GROWTH AFTER 5 DAYS 07/20/17 Urine Culture - Final, Complete Staph.aureus Methicillin Resis GME ATTESTATION GME ATTESTATION My preceptor for this patient encounter was physically present in the building during the encounter and was fully available. As needed, all aspects of the patient interview, examination, medical decision making process, and medical care plan development were reviewed and approved by the preceptor. Preceptor is aware and concurs with the plan as stated in the body of this note and will attest to such by his/her cosignature. ATTENDING NOTE Attending Note: I have independently examined this patient and all aspects of the exam and treatment decisions have been discussed with the resident. A member of the hospitalist staff will continue to follow this patient through discharge. JAYLIN MEJIA, Jul 30, 2017 09:33 BRYCE LOWERY DO Aug 01, 2017 15:15
[2017-07-30] MEDS: BISACODYL 10 MG SUPP PR SCH (12:15)
[2017-07-30 14:57] LABS: ALBUMIN 2.5 GM/DL (3.2-5.2); ALBUMIN/GLOBULIN RATIO 0.68 (1.00-1.93); BILIRUBIN,DIRECT 0.8 MG/DL (0.0-0.2); BILIRUBIN,TOTAL 1.3 MG/DL (0.2-1.0); TOTAL PROTEIN 6.2 GM/DL (6.4-8.2)
--- NOTE | 2017-07-30 16:23 | IPN ---
DATE: 07/30/2017 Poonam is about the same. She is still barely responsive. She opens her eyes when I call her name but does not answer questions appropriately. She has had no fever or chills. Her heart rate remains between 80 and 100, oxygen saturation is 91% on FiO2 of 35%. She has not been eating. She has no nausea, vomiting, diarrhea, abdominal pain. She seemed pretty comfortable except for being short of breath. Temperature is 97, pulse 81, respirations 18, blood pressure 135/65, oxygen saturation 98% on 35% venturi mask. Heart: Normal S1, S2, with a very loud systolic ejection murmur 3/6 and a diastolic murmur, irregular. Lungs: Few crackles at the bases. Abdomen is soft, nontender. Extremities: Trace lower extremity edema. Moves all extremities. LABORATORY DATA: White count is 19.2 which is down from 27, hemoglobin 11.2, hematocrit 35.1, platelets 125, 84% neutrophils, 4% lymphocytes, 8% monocytes. Sodium 132, potassium 4.6, chloride 91, bicarbonate 34, BUN 59, creatinine 1, glucose 126, calcium 8.3, bilirubin is 1.8, AST 31, ALT 32, alkaline phosphatase 87, CRP 12.6, albumin 2.5. Blood cultures from 07/28/2017, are no growth after 48 hours. Blood cultures done on 07/30/2017 is pending. The patient had bacteremia from 07/22/2017 to 07/27/2017. Vancomycin trough is 13.6. Digoxin level 1.5, gentamicin peak 4.9 and trough 1.2. Currently on gentamicin 80 mg IV every 36 hours and vancomycin 750 mg IV every 24 hours, rifampin 300 mg by mouth twice a day. IMPRESSION: 1. 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 The patient is being treated for prosthetic valve endocarditis with vancomycin and gentamicin and rifampin. Gentamicin will be continued for 2 weeks and the others for 6 weeks. 2. Congestive heart failure and aortic regurgitation. The patient has very poor prognosis. PLAN: Continue same management. Son was at the bedside and was informed about the patient's poor prognosis. Peripherally-inserted central catheter (PICC) line has been placed on 07/29/2017.
[2017-07-30] MEDS: VANCOMYCIN HCL 750 MG, VIAL MATE ADAPTER 1 EACH in D5W 250 ML IV SCH (18:00)
[2017-07-30] MEDS: GENTAMICIN 80 MG in APPROPRIATE DILUENT 1 EA IV SCH (21:53)
[2017-07-31] VITALS (7 sets, daily range): BP systolic 123–142; BP diastolic 56–81
[2017-07-31 06:27] LABS: MEAN CORPUSCULAR HEMOGLOBIN 29.6 pg (27.0-33.0); MEAN CORPUSCULAR HGB CONC 31.8 g/dl (32.0-36.5); MEAN CORPUSCULAR VOLUME 92.9 fl (80.0-96.0); PLATELET COUNT, AUTOMATED 126 10^3/uL (150-450); RED CELL DISTRIBUTION WIDTH 16.2 % (11.5-14.5); WHITE BLOOD COUNT 22.2 10^3/uL (4.0-10.0)
[2017-07-31 06:28] LABS: ADD MANUAL DIFFER YES; DIFF SLIDE NUMBER 47
[2017-07-31] MEDS: SODIUM CHLORIDE 0.9% INJ 10 ML SYR IV SCH ×2 (06:34→17:10)
[2017-07-31] MEDS: SLF 3 ML SYR IV SCH ×3 (06:35→21:22)
[2017-07-31 06:59] LABS: CALCIUM LEVEL 8.5 MG/DL (8.8-10.2); CREATININE FOR GFR 1.13 MG/DL (0.55-1.02); GLOMERULAR FILTRATION RATE 48.5 (>32)
[2017-07-31 07:06] LABS: BANDS 1 % (< 11)
[2017-07-31 07:07] LABS: ANISOCYTOSIS 1+; POIKILOCYTOSIS 1+
[2017-07-31] MEDS: IPRATROPIUM 0.02% SOLN 0.5MG/2.5 ML NEB INH SCH ×4 (07:32→19:24)
[2017-07-31 08:25] LABS: ERYTHROCYTE SEDIMENTATION RATE 29 mm/hr (0-42)
[2017-07-31] MEDS: DIGOXIN INJ 0.5 MG/2 ML AMP (J1160) IV SCH ×2 (09:00→09:55)
[2017-07-31] MEDS: ATORVASTATIN 20 MG TAB PO SCH (09:00)
[2017-07-31] MEDS ORDERED: FUROSEMIDE 40 MG/4 ML VIAL (J1940) IV ONE (09:45)
--- NOTE | 2017-07-31 10:13 | IPNPDOC ---
Subjective Date Seen The patient was seen on 07/31/17. Subjective Chief Complaint/HPI The patient is a 87-year-old female admitted with a reason for visit of Atrial Fibrillation With Rvr. Events since last encounter Patient is very somnolent does not responding to verbal stimuli. Daughter is at bedside stated the patient had an unproductive night. Patient was placed on 40 FiO2 15 mL oxygen around the evening. Patient hasn't been eating her food and has been very lethargic the past 24 hours. Per nursing patient had no overnight events. Per telemetry patient had no events overnight. General: Reports: ROS Unobtainable Objective Physical Examination General Exam: Negative: Alert (somnolent and lethargic) ENT Exam: Positive: Atraumatic Neck Exam: Positive: JVD Chest Exam: Positive: Diminished (currently on 15 L Ventimask of oxygen, diffused crackles bilateral.) Heart Exam: Positive: Rate Normal, Irregular Rhythm, Murmurs (systolic murmur at the right sternal border) Telemetry: Positive: Atrial fibrillation Abdomen Exam: Positive: Soft, Negative: Tenderness Extremity Exam: Positive: Edema (2+ edema bilaterally up to mid calf), Swelling , Negative: Tenderness Neuro Exam: Positive: Other (minimal movement of her extremities.), Negative: Normal Speech, Normal Tone Psych Exam: Negative: Mental status NL Assessment /Plan Assessment 1.Staph Bacteremia possibly 2/2 . 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 07/27 but cultures came back positive for staph aureus. 07/28 blood cultures currently show no growth for 72 hours. Blood cultures on 07/30 showed no growth for 24 hours. We'll continue with IV Vanco and Gentamycin and rifampin. PICC line was placed yesterday anticipate 6-8weeks therapy. Chest xray from 07/28 showed Bilateral pleural effusions. Diffuse right lung infiltrate. Appreciate Dr. Calabrese's direction. Patient hasn't been receiving rifampin since 07/27 evening due to lethargy . Discussed with pharmacy will attempt opening capsule and mixing it in water and see if patient tolerates this. 2.Sepsis possibly 2/2 Suspected Endocarditis vs Underlying UTI, Pneumonia Urine Culture notable for MRSA WBC table at 19.2 will continue with Vanco, Gent , rifampin. Patient hemodynamically stable this AM. We will cont to monitor. 3.Leukocytosis 2/2 currently at 22.2, afebrile overnight patient will continue with IV antibiotics we'll continue to follow. 4.Metabolic Encephalopathy: secondary to sepsis 5.Atrial Fibrillation with RVR, controlled Rate controlled on Cardizem gtt 7.5.- -still not consistently tolerating PO intake this a.m. Ordered Lasix 40mg IVx1 , will not be aggressive with diuresis because of patient poor PO intake. Eliquis has been stopped because of risk outweighs the benefit. Dr. Casey will be taking over this weekend, which we can call him if we need further assistance. 6.Decompensated CHF likely 2/2 Above Diuretics on hold 2/2 Septic picture 2D ECHO results noted--the patient's aortic stenosis appears mild compared to her previous history Chest x-ray demonstrates bilateral pleural effusions, diffuse right lung infiltrate. Ordered Lasix 40mg IVx1 , will not be aggressive with diuresis because of patient poor PO intake. Eliquis has been stopped because of risk outweighs the benefit. 7. Hx of Bioprosthetic Aortic Valve Replacement with Subsequent Severe Aortic Stenosis of Prosthesis. 2D ECHO here reveals mild aortic stenosis. Cardiology on board. Likely the cause of the bacteremia but unsure. Patient is to continue with IV antibiotics and rifampin 8.Hx of Ischemic CVA with Hemorrhagic Conversion. CT of the Head noted here. Patient was unable to obtain MRI 2/2 clinical condition. Cont Statin. Eliquis has been stopped, per cardiology because of risk outweighs the benefit. Neurology on board 9.CKD Stage IIIB. Serum Cr appears to be at baseline 10.COPD, stable. Cont Current Regimen 11. Constipation. Continue Dulcolax suppositories once a day. 11.DVT Prophylaxis. Eliquis was stopped on 07/27 because of patient's risk of bleeding the outweighs the benefits. Patient has been placed on SCDs Plan/VTE VTE Prophylaxis Ordered?: Yes (SCDs) Plan/Urinary Catheter Reason for insertion/continuin: Critical Pt monitoring VS, I&O, 24H, Fishbone Vital Signs/I&O Vital Signs Date Time Temp Pulse Resp B/P (MAP) Pulse Ox O2 Delivery O2 Flow Rate FiO2 07/31/17 05:40 97.6 96 61 140/66 (90) 90 Venturi Mask 15.0 40 Laboratory Data 24H LABS Laboratory Tests 2 07/31/17 06:06: Immature Granulocyte % (Auto) , White Blood Count 22.2H, Red Blood Count 3.82L, Hemoglobin 11.3L, Hematocrit 35.5L, Mean Corpuscular Volume 92.9, Mean Corpuscular Hemoglobin 29.6, Mean Corpuscular Hemoglobin Concent 31.8L, Red Cell Distribution Width 16.2H, Platelet Count 126L, Monocytes # (Auto) , Nucleated Red Blood Cells % (auto) 0.2H, Neutrophils 83H, Band Neutrophils 1, Lymphocytes (Manual) 4L, Monocytes (Manual) 9H, Myelocytes 3H, Platelet Estimate DECREASED, Poikilocytosis 1+, Anisocytosis 1+, Macrocytosis , Erythrocyte Sedimentation Rate 29, Anion Gap 7L, Glomerular Filtration Rate 48.5 , Blood Urea Nitrogen 64H, Creatinine 1.13H, Sodium Level 136, Potassium Level 5.0, Chloride Level 94L, Carbon Dioxide Level 35H, Calcium Level 8.5L, C- Reactive Protein, Quantitative 11.20H CBC/BMP Laboratory Tests 07/31/17 06:06 Red Blood Count 3.82 L, Mean Corpuscular Volume 92.9, Mean Corpuscular Hemoglobin 29.6, Mean Corpuscular Hemoglobin Concent 31.8 L, Red Cell Distribution Width 16.2 H, Monocytes # (Auto) , Calcium Level 8.5 L Microbiology Microbiology 07/30/17 Blood Culture - Preliminary, Resulted No growth after 24 hours . All specim... 07/28/17 Blood Culture - Preliminary, Resulted No Growth after 72 hours. All specime... 07/27/17 Blood Culture - Final, Complete Staph.aureus Methicillin Resis 07/24/17 Blood Culture - Final, Complete Staph.aureus Methicillin Resis 07/24/17 Blood Culture - Final, Complete Staph.aureus Methicillin Resis 07/23/17 Blood Culture - Final, Complete Staph.aureus Methicillin Resis 07/23/17 Blood Culture - Final, Complete Staph.aureus Methicillin Resis 07/22/17 Blood Culture - Final, Complete Staph.aureus Methicillin Resis 07/22/17 Blood Culture - Final, Complete Staph.aureus Methicillin Resis GME ATTESTATION GME ATTESTATION My preceptor for this patient encounter was physically present in the building during the encounter and was fully available. As needed, all aspects of the patient interview, examination, medical decision making process, and medical care plan development were reviewed and approved by the preceptor. Preceptor is aware and concurs with the plan as stated in the body of this note and will attest to such by his/her cosignature. ATTENDING NOTE Attending Note: I have independently examined this patient and all aspects of the exam and treatment decisions have been discussed with the resident. A member of the hospitalist staff will continue to follow this patient through discharge. JAYLIN MEJIA, Jul 31, 2017 10:13 BRYCE LOWERY DO Aug 01, 2017 15:18
[2017-07-31] MEDS: PANTOPRAZOLE 40MG INJ (PROTONIX) (C9113) IV SCH (11:41)
[2017-07-31] MEDS: diltiaZEM 125 MG in NS 100 ML IV SCH (11:43)
[2017-07-31] MEDS: BISACODYL 10 MG SUPP PR SCH (17:09)
[2017-07-31] MEDS: VANCOMYCIN HCL 750 MG, VIAL MATE ADAPTER 1 EACH in D5W 250 ML IV SCH (17:11)
[2017-08-01] VITALS (8 sets, daily range): BP systolic 108–131; BP diastolic 55–72
[2017-08-01] MEDS: diltiaZEM 125 MG in NS 100 ML IV SCH ×2 (02:26→17:34)
[2017-08-01] MEDS: SLF 3 ML SYR IV SCH ×2 (04:35→12:27)
[2017-08-01] MEDS: SODIUM CHLORIDE 0.9% INJ 10 ML SYR IV SCH ×2 (04:36→17:13)
[2017-08-01 05:04] LABS: MEAN CORPUSCULAR HEMOGLOBIN 29.7 pg (27.0-33.0); MEAN CORPUSCULAR HGB CONC 30.3 g/dl (32.0-36.5); PLATELET COUNT, AUTOMATED 116 10^3/uL (150-450); RED CELL DISTRIBUTION WIDTH 16.5 % (11.5-14.5); WHITE BLOOD COUNT 26.5 10^3/uL (4.0-10.0)
[2017-08-01 05:09] LABS: MEAN CORPUSCULAR VOLUME 98.2 fl (80.0-96.0)
[2017-08-01 05:14] LABS: CREATININE FOR GFR 1.34 MG/DL (0.55-1.02); GLOMERULAR FILTRATION RATE 39.8 (>32)
[2017-08-01 05:20] LABS: POTASSIUM SERUM 5.2 MEQ/L (3.5-5.1)
[2017-08-01 05:22] LABS: ADD MANUAL DIFFER YES
[2017-08-01 05:23] LABS: DIFF SLIDE NUMBER 30
[2017-08-01 05:31] LABS: ANISOCYTOSIS 1+; HYPOCHROMASIA 1+; POLYCHROMASIA 1+
[2017-08-01] MEDS ORDERED: SOD POLYSTYRENE SULFONATE SUSP 15 GM/60 ML UD PO ONE (06:30)
[2017-08-01 06:48] LABS: ALBUMIN 2.6 GM/DL (3.2-5.2); PHOSPHORUS LEVEL 7.1 MG/DL (2.5-4.9)
[2017-08-01] MEDS: IPRATROPIUM 0.02% SOLN 0.5MG/2.5 ML NEB INH SCH ×4 (08:00→20:23)
[2017-08-01] MEDS ORDERED: SOD POLYSTYRENE SULFONATE SUSP 30 GM/120 ML ENEMA PR ONE (08:15)
[2017-08-01] MEDS: PANTOPRAZOLE 40MG INJ (PROTONIX) (C9113) IV SCH (08:51)
[2017-08-01] MEDS: DIGOXIN INJ 0.5 MG/2 ML AMP (J1160) IV SCH (08:52)
[2017-08-01] MEDS: ATORVASTATIN 20 MG TAB PO SCH (08:53)
[2017-08-01] MEDS: GENTAMICIN 80 MG in APPROPRIATE DILUENT 1 EA IV SCH ×2 (09:01→09:51)
--- NOTE | 2017-08-01 11:30 | REP ---
Portable chest x-ray: Single view. History: Hypoxia. Comparison study: July 28, 2017. Findings: A right-sided PICC line is seen with its tip in the expected location of the superior vena cava. The patient is status post cardiac valve replacement. Mild cardiac enlargement is seen. There is pleural opacity in both bases consistent with bilateral pleural effusions. This appears to have increased at least on the right. Interstitial markings are increased and vascular markings are indistinct consistent with interstitial edema. Impression: CHF pattern with pulmonary edema and bilateral effusions. Somewhat increased. Signed by Sylvester Smith MD 08/01/2017 09:38 A
[2017-08-01] MEDS ORDERED: FUROSEMIDE 40 MG/4 ML VIAL (J1940) IV ONE (11:45)
--- NOTE | 2017-08-01 11:58 | IPNPDOC ---
Date Seen The patient was seen on 08/01/17. Progress Note SUBJECTIVE: Patient is a 87 yo female seen at bedside OBJECTIVE PHYSICAL EXAMINATION: VITAL SIGNS: Please see below. GENERAL: [NAD, A&OX3] HEENT: [PERRLA, throat clear, neck supple] CARDIOVASCULAR: [IRREG IRREG]. RESPIRATORY: [DIMINISHED BIBASILAR SOUNDS, occasional wheeze]. ABDOMINAL: [soft, NT/ND, normoactive bowel sounds] EXTREMITIES: [mild edema, no calf tenderness] NEUROLOGICAL: [CN II-XII grossly intact] PSYCHOLOGICAL: [negative] LABORATORY DATA: Please see below. MICROBIOLOGY: Please see below. DVT prophylaxis ordered?: [yes] ASSESSMENT AND PLAN: This is a 87 female with endocarditis and worsening condition and increased hypoxia. 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 Continue current antibiotic dosing. 2. Hyperkalemia: one time dose of kayexelate. 3.Sepsis: wbc worse today (26K) no signs of loose stool, clinically not improving. Continue broad spectrum antibiotics with Vanco, Gent, rifampin. ID back tomorrow. 4.Hypoxia: CXR looks like cephalization and increased pleural effusions: Lasix 40mg IV times one. 5.Metabolic Encephalopathy: secondary to sepsis 6.Atrial Fibrillation with RVR, controlled Rate controlled on Cardizem gtt 7.5.- -still not consistently tolerating PO intake this a.m. Ordered Lasix 40mg IVx1 , will not be aggressive with diuresis because of patient poor PO intake. Eliquis has been stopped because of risk outweighs the benefit. Dr. Casey will be taking over this weekend, which we can call him if we need further assistance. 7.Decompensated CHF with increased hypoxia: one time dose of Lasix 40mg. Eliquis has been stopped because of risk outweighs the benefit. 8. Hx of Bioprosthetic Aortic Valve Replacement with Subsequent Severe Aortic Stenosis of Prosthesis. 2D ECHO here reveals mild aortic stenosis. Cardiology on board. Likely the cause of the bacteremia but unsure. Patient is to continue with IV antibiotics and rifampin 9.Hx of Ischemic CVA with Hemorrhagic Conversion. CT of the Head noted here. Patient was unable to obtain MRI 2/2 clinical condition. Cont Statin. Eliquis has been stopped, per cardiology because of risk outweighs the benefit. Neurology on board 10.CKD Stage IIIB. Serum Cr appears to be at baseline 11.COPD, stable. Cont Current Regimen 12. Constipation. Continue Dulcolax suppositories once a day. 13.DVT Prophylaxis. Eliquis was stopped on 07/27 because of patient's risk of bleeding the outweighs the benefits. Patient has been placed on SCDs DISPOSITION: had lengthy discussion with family regarding her grave prognosis and appears she may be worsening. They would like to have some private time to discuss among themselves today regarding what the next course of action. For now she continues DNR/DNI and I would anticipate that the family may be leaning toward MACHINE QUILT STUFFER in the next 24 hrs. VS, I&O, 24H, Fishbone Vital Signs/I&O Vital Signs Date Time Temp Pulse Resp B/P (MAP) Pulse Ox O2 Delivery O2 Flow Rate FiO2 08/01/17 08:52 86 08/01/17 08:00 98.0 18 118/72 (87) 90 Venturi Mask 15.0 50 Laboratory Data 24H LABS Laboratory Tests 2 08/01/17 04:38: Immature Granulocyte % (Auto) , White Blood Count 26.5H, Red Blood Count 3.90L, Hemoglobin 11.6L, Hematocrit 38.3, Mean Corpuscular Volume 98.2#H, Mean Corpuscular Hemoglobin 29.7, Mean Corpuscular Hemoglobin Concent 30.3L, Red Cell Distribution Width 16.5H, Platelet Count 116L, Neutrophils (%) (Auto) , Lymphocytes (%) (Auto) , Monocytes (%) (Auto) , Eosinophils (%) (Auto) , Basophils (%) (Auto) , Neutrophils # (Auto) , Lymphocytes # (Auto) , Monocytes # (Auto) , Eosinophils # (Auto) , Basophils # (Auto) , Immature Granulocyte # ( Auto) , Nucleated Red Blood Cells % (auto) 0.5H, Neutrophils 89H, Lymphocytes ( Manual) 1L, Monocytes (Manual) 7, Metamyelocytes 1H, Myelocytes 2H, Platelet Estimate DECREASED, Polychromasia 1+, Hypochromasia 1+, Anisocytosis 1+, Anion Gap 6L, Glomerular Filtration Rate 39.8, Blood Urea Nitrogen 70H, Creatinine 1.34H, Sodium Level 135L, Potassium Level 5.2H, Chloride Level 94L, Carbon Dioxide Level 35H, Calcium Level 8.0L, Phosphorus Level 7.1H, Albumin 2.6L 08/01/17 11:04: CBC/BMP Laboratory Tests 08/01/17 04:38 Red Blood Count 3.90 L, Mean Corpuscular Volume 98.2 #H, Mean Corpuscular Hemoglobin 29.7, Mean Corpuscular Hemoglobin Concent 30.3 L, Red Cell Distribution Width 16.5 H, Neutrophils (%) (Auto) , Lymphocytes (%) (Auto) , Monocytes (%) (Auto) , Eosinophils (%) (Auto) , Basophils (%) (Auto) , Neutrophils # (Auto) , Lymphocytes # (Auto) , Monocytes # (Auto) , Eosinophils # (Auto) , Basophils # (Auto) , Calcium Level 8.0 L Microbiology Microbiology 07/30/17 Blood Culture - Preliminary, Resulted No Growth after 48 hours. All Specime... 07/28/17 Blood Culture - Preliminary, Resulted No Growth after 72 hours. All specime... 07/27/17 Blood Culture - Final, Complete Staph.aureus Methicillin Resis 07/24/17 Blood Culture - Final, Complete Staph.aureus Methicillin Resis 07/24/17 Blood Culture - Final, Complete Staph.aureus Methicillin Resis 07/23/17 Blood Culture - Final, Complete Staph.aureus Methicillin Resis 07/23/17 Blood Culture - Final, Complete Staph.aureus Methicillin Resis 07/22/17 Blood Culture - Final, Complete Staph.aureus Methicillin Resis 07/22/17 Blood Culture - Final, Complete Staph.aureus Methicillin Resis BRYCE LOWERY DO Aug 01, 2017 11:57
[2017-08-01] MEDS: BISACODYL 10 MG SUPP PR SCH (12:08)
[2017-08-01] MEDS: VANCOMYCIN HCL 750 MG, VIAL MATE ADAPTER 1 EACH in D5W 250 ML IV SCH (17:13)
--- NOTE | 2017-08-01 18:45 | PHACANCOPD ---
PHARMACY VANCOMYCIN DOSING Pt Demographics Demographics Patient Age:87 , Weight:63.200 , Gender: female Adjusted Body Weight Date: 07/22/17, Adjusted Body Weight: [61.4] Kg Events Past 24 Hours Events Past 24 Hours: YES: Change in CrCl, NO: Dialysis, Diuretic Therapy, Fever, Elevation in WBC, Pending Diagnostics , Pending Procedures, Other Vancomycin Vancomycin indication: sepsis Vancomycin Target Ranges: 15-20 mcg/ml Vancomycin Load Y/N: Yes Load Dose Date Time Vancomycin Load Dose: 1500MG Date: 07/22/17 Time: 1700 Vancomycin Dose Date: 08/01/17. Current Vancomycin Dose: [500MG IV Q24H] Date: 07/22/17. Current Vancomycin Dose: [1G Q24H] Intermittent Dosing?: No Labs Labs Item Value Date Time White Blood Count 19.2 10^3/uL H 07/30/17 0529 White Blood Count 22.2 10^3/uL H 07/31/17 0606 White Blood Count 26.5 10^3/uL H 08/01/17 0438 Creatinine 1.13 MG/DL H 07/31/17 0606 Creatinine 1.34 MG/DL H 08/01/17 0438 Creatinine 1.05 MG/DL H 07/30/17 0529 Vancomycin Level Trough 21.5 UG/ML H 08/01/17 1704 Micro Microbiology 07/30/17 Blood Culture - Preliminary, Resulted No Growth after 48 hours. All Specime... 07/28/17 Blood Culture - Preliminary, Resulted No Growth after 72 hours. All specime... 07/27/17 Blood Culture - Final, Complete Staph.aureus Methicillin Resis 07/24/17 Blood Culture - Final, Complete Staph.aureus Methicillin Resis 07/24/17 Blood Culture - Final, Complete Staph.aureus Methicillin Resis 07/23/17 Blood Culture - Final, Complete Staph.aureus Methicillin Resis 07/23/17 Blood Culture - Final, Complete Staph.aureus Methicillin Resis 07/22/17 Blood Culture - Final, Complete Staph.aureus Methicillin Resis 07/22/17 Blood Culture - Final, Complete Staph.aureus Methicillin Resis Creatinine Clearance Date:08/01/17. Creatinine Clearance: [21.5ML/MIN]. Date:07/24/17. Creatinine Clearance: [~39 ml/min]. Assessment and Plan Maintaining Current Dose?: No Reason for dose change: Change in serum Cr, Trough too high Pharmacist Note Pharmacist Note Date: 08/01/17. Pharmacist note: The pts creatinine clearance has decreased to 27.4ml/min a trough was scheduled today which came back 21.5mcg/ml @17:04 . The next dose was already administered so the dose will be decreased to 500mg q24h starting 08/03/17 @ 06:00 to allow time for some vancomycin to clear. Date: 07/24/17. Pharmacist note: vancomycin level drawn ~10 hours post second dose was 21.6 mcg/ml. SCr has improved today. I have changed her 1g q24h dosing to start 8 hours earlier (6 hours post random level). Blood cultures on 07/22 are preliminary positive for staph aureus, awaiting sensitivities (likely MRSA based on urine culture). Repeat blood cultures (07/23) have been NGTD. Of note, pt has a bioprosthetic valve and there is concern for endocarditis. We will continue to monitor. 07/23/17: Scr is 1.17 today, up from 0.85 yesterday. I have scheduled a trough to be drawn prior to the 3rd dose tomorrow, 07/24/17, @1800. We will continue to monitor and make dose adjustments if needed. Date: 07/22/17. Pharmacist note: Pt. is a 87 year old female who was brought to the ED for increased confusion and SOB on 07/20/17. Urine screen tested positive for MRSA at that time. Pt. is now displaying a fever and has an increase in WBC. Pt. has never been on vancomycin at our facility. I gave patient a loading dose of vancomycin 1500mg and will follow with 1g IV Q24H. We will continue to monitor and adjust dose as needed. ANANDA SANDERSON [facility] Aug 01, 2017 18:45
[2017-08-01] MEDS: LEVALBUTEROL 1.25 MG/0.5 ML CONCENTRATE NEB INH PRN (20:23)
[2017-08-02] MEDS: SODIUM CHLORIDE 0.9% INJ 10 ML SYR IV SCH ×2 (04:30→18:03)
[2017-08-02 04:35] VITALS: BP 114/59
[2017-08-02 04:41] LABS: MEAN CORPUSCULAR HEMOGLOBIN 29.7 pg (27.0-33.0); MEAN CORPUSCULAR HGB CONC 30.7 g/dl (32.0-36.5); MEAN CORPUSCULAR VOLUME 96.9 fl (80.0-96.0); RED CELL DISTRIBUTION WIDTH 16.5 % (11.5-14.5)
[2017-08-02 04:48] LABS: PLATELET COUNT, AUTOMATED 77 10^3/uL (150-450); POSITIVE DIFF POS FLAG; POSITIVE MORPH POS FLAG; WHITE BLOOD COUNT 32.2 10^3/uL (4.0-10.0)
[2017-08-02 04:49] LABS: ADD MANUAL DIFFER YES; DIFF SLIDE NUMBER 35; POS COUNT POS FLAG
[2017-08-02 04:54] LABS: IMMATURE PLATELET FRACTION % 10.7 % (0.0-9.6)
[2017-08-02 05:01] LABS: CALCIUM LEVEL 7.6 MG/DL (8.8-10.2); CREATININE FOR GFR 1.89 MG/DL (0.55-1.02); GLOMERULAR FILTRATION RATE 26.8 (>32)
[2017-08-02 05:03] LABS: POTASSIUM SERUM 5.3 MEQ/L (3.5-5.1)
[2017-08-02 05:09] LABS: ANISOCYTOSIS 1+; HYPOCHROMASIA 1+; POIKILOCYTOSIS 1+
[2017-08-02 05:11] LABS: TOXIC GRANULATION 1+
[2017-08-02] MEDS: IPRATROPIUM 0.02% SOLN 0.5MG/2.5 ML NEB INH SCH ×4 (08:00→20:00)
--- NOTE | 2017-08-02 08:03 | IPN ---
DATE: 08/02/2017 Mrs. Atkinson did not have a good weekend. Her condition slowly deteriorated. She now requires 50% FiO2 by mask in order to keep saturation in low to mid 90s. She has been with altered mental status and there has not been any oral intake almost for 2 days. Her blood work also indicates deterioration with very high white blood cell (WBC) count at 32,000 and platelet count dropping to 77 and there has been onset of renal failure. Is currently at 1.9. Even before I started examining the patient her daughter approached me and informed me that the family made a decision to progress to comfort care. I believe this is completely appropriate. 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 I will contact attending physician to institute comfort care measures. SARAH
[2017-08-02] MEDS: ATORVASTATIN 20 MG TAB PO SCH (09:00)
[2017-08-02] MEDS ORDERED: VANCOMYCIN INTERMITTENT/PULSE DOSING BY CLINICAL PHARMACIST PER DOSING PROTOCOL XX SCH (09:00)
[2017-08-02] MEDS: PANTOPRAZOLE 40MG INJ (PROTONIX) (C9113) IV SCH (09:00)
[2017-08-02] MEDS: DIGOXIN INJ 0.5 MG/2 ML AMP (J1160) IV SCH (09:00)
[2017-08-02] MEDS ORDERED: ACETAMINOPHEN 650 MG SUPP PR PRN (10:30)
[2017-08-02] MEDS ORDERED: LORazepam 1 MG TAB PO PRN (10:30)
[2017-08-02] MEDS ORDERED: MORPHINE 10MG/0.5ML ORAL CONCENTRATE SOLUTION U/D SL PRN (10:30)
[2017-08-02] MEDS ORDERED: FLEET ENEMA PR PRN (10:30)
[2017-08-02] MEDS ORDERED: SCOPOLAMINE 1.5 MG TRANSDERMAL TD PRN (10:30)
--- NOTE | 2017-08-02 10:50 | IPN ---
DATE: 08/02/2017 Renee is going on comfort measures. The case was discussed with Dr. Mcginnis. I spoke with Caridad Robles, her daughter and she is requesting comfort measures. Her mother is unresponsive, has labored respirations and I feel that is appropriate. Comfort measure orders were instituted today.
[2017-08-02 11:27] VITALS: BP 114/59
[2017-08-02] MEDS: diltiaZEM 125 MG in NS 100 ML IV SCH (12:00)
[2017-08-02] MEDS: BISACODYL 10 MG SUPP PR SCH (12:18)
[2017-08-02] MEDS ORDERED: GENTAMICIN 60 MG in D5W 50 ML IV SCH (22:00)
[2017-08-03] MEDS ORDERED: VANCOMYCIN HCL 500 MG in D5W MINI-BAG PLUS 100 ML IV SCH (06:00)
--- NOTE | 2017-08-03 08:36 | DSES ---
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 SECONDARY DIAGNOSES: 1. Metabolic encephalopathy secondary to sepsis. 2. Atrial fibrillation with rapid ventricular response. 3. Decompensated congestive heart failure (CHF). 4. 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 5. History of ischemic stroke with hemorrhagic conversion. 6. Chronic kidney disease, stage 3B. 7. Chronic obstructive pulmonary disease (COPD). 8. Hyperkalemia. 9. Hypoxia secondary to congestive heart failure. HISTORY: Poonam Atkinson was on the hospitalist service. I did not round on her; she was on comfort measures the day that I was covering. Per the note, she had the diagnoses summarized above. She was put on comfort measures the day before I assumed her care and she that evening. Details of her hospitalization per medical record will not be repeated here.
== END 2017-08-02 23:30 | disposition expired | DRG 314 ==
LOC: M ED 08:38 → EEVIPCON 13:35 → M ED INP 13:35 → M PCU 14:53 → M MSPAV 08-02 16:59
PROVIDERS: ADMIT Internal Medicine; ATTEND Family Medicine
PROC: 02HV33Z Insertion of Infusion Device into Superior Vena Cava, Percutaneous Approach (ICD-10-PCS; principal; 2017-07-29)
DX: T82.6XXA Infection and inflammatory reaction due to cardiac valve prosthesis, initial encounter (principal); A41.02 Sepsis due to Methicillin resistant Staphylococcus aureus; I50.33 Acute on chronic diastolic (congestive) heart failure; I33.0 Acute and subacute infective endocarditis; R65.21 Severe sepsis with septic shock; G93.41 Metabolic encephalopathy; I69.351 Hemiplegia and hemiparesis following cerebral infarction affecting right dominant side; I13.0 Hypertensive heart and chronic kidney disease with heart failure and stage 1 through stage 4 chronic kidney disease, or unspecified chronic kidney disease; E87.1 Hypo-osmolality and hyponatremia; N39.0 Urinary tract infection, site not specified; Z51.5 Encounter for palliative care; Z66 Do not resuscitate; I48.0 Paroxysmal atrial fibrillation; J44.9 Chronic obstructive pulmonary disease, unspecified; I35.2 Nonrheumatic aortic (valve) stenosis with insufficiency; N18.3 Chronic kidney disease, stage 3 (moderate); K59.00 Constipation, unspecified; Y83.1 Surgical operation with implant of artificial internal device as the cause of abnormal reaction of the patient, or of later complication, without mention of misadventure at the time of the procedure; I27.20 Pulmonary hypertension, unspecified; I69.320 Aphasia following cerebral infarction; R13.10 Dysphagia, unspecified; M19.90 Unspecified osteoarthritis, unspecified site; G25.0 Essential tremor; I45.10 Unspecified right bundle-branch block; Z79.899 Other long term (current) drug therapy; Z95.2 Presence of prosthetic heart valve; Z87.891 Personal history of nicotine dependence; Z88.2 Allergy status to sulfonamides; Z79.82 Long term (current) use of aspirin